=== PATIENT | female | born 1930 | race Caucasian/White ===

== ENCOUNTER 2016-10-05 14:07 | Inpatient (IN) | payer MEDICARE, OTHER ==
[~2016-10-05] VITALS: Ht 154.9 cm; Wt 51.7 kg
[~2016-10-05 14:07] MED LIST: ALBU0.086 NEB; ASCO500 PO; IRON325T PO; MELO7.5 PO; OMEP20TA PO; PRESCAP5 PO; SYMB80AE INH; ULTR50TA PO
[2016-10-05 14:14] VITALS: BP 151/66; PULSE 84; RESP 18; TEMP 98.8; O2SAT 91
--- NOTE | 2016-10-05 14:28 | PD ---
HPI Chief Complaint: Injury Time Seen by Provider: 14:21 Travel History International Travel<30 days: No Contact w/Intl Traveler<30days: No Traveled to known affect area: No History of Present Illness HPI Patient comes in via EMS. Reportedly came back from her primary care doctor's office complaining of worsening right hip pain and family was unable to patient the front seat of a car thusly and call EMS.. Per EMS patient is scheduled to have surgery in 2 days at this hospital and requests that she brought here for possible admission and surgery. Family did not report any new injury to EMS. Patient reports pain in her right hip that radiates distally. Is worse with movement. Denies any other complaints. Denies any chest pain, shortness of breath, abdominal pain, or known fevers. Patient does not know who is suppose to perform the surgery or who her primary care doctor is. Per EMS patient does have a history of dementia. PFSH Past Medical History Cancer: No Cardiovascular Problems: Yes Diabetes: No Endocrine: No Genitourinary: No Hepatitis: No Hiatal Hernia: No Immune Disorder: No Musculoskeletal: Yes (arthritis in hips) Neurologic: No Psychiatric: No Reproductive: No Respiratory: Yes (copd, uses 02 at night,RECENTLY SEEN FOR PNEUMONIA) Thyroid Disease: No Past Surgical History AICD: No Gynecologic Surgery: Yes (hysterectomy) Joint Replacement: No Oral Surgery: Yes (TONSILLECTOMY) Pacemaker: No Social History Alcohol Use: No Tobacco Use: No Substance Use: No (3 beers a day or more) Allergies-Medications (Allergen,Severity, Reaction): Coded Allergies: No Known Allergies (Unverified , 10/05/16) Reported Meds & Prescriptions Reported Meds & Active Scripts Active Reported Preservision Areds 2 (Multiple Vitamins W/ Minerals) Cap 1 Caplet PO BID Ultram (Tramadol HCl) 50 Mg Tab 50 Mg PO BID PRN Vitamin C 500 Mg Tab (Ascorbic Acid) 500 Mg Tab 1 Tab PO DAILY Omeprazole 20 mg (Omeprazole) 20 Mg Tab 1 Tab PO DAILY Mobic 7.5 Mg Tab (Meloxicam) 7.5 Mg Tab 7.5 Mg PO DAILY Iron Supplement (Ferrous Sulfate) 325 Mg Tab 1 Tab PO BID Symbicort (Budesonide/Formoterol Fumarate) 80 Mcg/4.5 Mcg Aer Unknown Dose INH BID * SHAKE WELL BEFORE USE * Proventil Ud 0.083% (2.5 Mg/3 Ml) (Albuterol Sulfate) 2.5 Mg/3 Ml Inha Unknown Dose NEB QID Review of Systems Except as stated in HPI: all other systems reviewed are Neg Physical Exam Narrative GENERAL: Well-developed, well nourished, in no acute distress, and non-ill appearing. SKIN: Warm and dry. HEAD: Atraumatic. Normocephalic. EYES: Pupils equal and round. EOMI. No scleral icterus. No injection or drainage. ENT: No nasal bleeding or discharge. Mucous membranes pink and moist. NECK: Trachea midline. Supple. No nuclear rigidity. CARDIOVASCULAR: Regular rate and rhythm. No murmur appreciated. RESPIRATORY: No accessory muscle use. No respiratory distress. GASTROINTESTINAL: Abdomen soft, non-tender, nondistended. Hepatic and splenic margins not palpable. No pulsatile mass. MUSCULOSKELETAL: No obvious deformities. No clubbing. No cyanosis. No edema. Decreased range of motion right lower extremity secondary to pain. Patient reports to palpation over right hip patient reports is worse when trying to passively move it thus limiting exam. Dorsal pulses 2+ intact bilaterally. Capillary refill less than 2 seconds. No pedal edema. NEUROLOGICAL: Awake and alert. No obvious cranial nerve deficits. Motor grossly within normal limits. Normal speech. PSYCHIATRIC: Appropriate mood and affect. Data Data Last Documented VS Vital Signs Date Time Temp Pulse Resp B/P Pulse Ox O2 Delivery O2 Flow Rate FiO2 10/05/16 17:34 96 Nasal Cannula 3 10/05/16 16:48 88 22 140/68 10/05/16 14:14 98.8 Orders Hip, Uni(Ap&Lat) W Ap Pelvis (10/05/16 ) Urinalysis - C+S If Indicated (10/05/16 14:20) Electrocardiogram (10/05/16 17:05) Basic Metabolic Panel (Bmp) (10/05/16 17:05) Complete Blood Count With Diff (10/05/16 17:05) Prothrombin Time / Inr (Pt) (10/05/16 17:05) Act Partial Throm Time (Ptt) (10/05/16 17:05) Chest, Single Ap (10/05/16 17:05) Ecg Monitoring (10/05/16 17:05) Iv Access Insert/Monitor (10/05/16 17:05) Oximetry (10/05/16 17:05) Oxygen Administration (10/05/16 17:05) Sodium Chloride 0.9% Flush (Ns Flush) (10/05/16 17:15) Consult Orthopedic (10/05/16 ) Admit Order (Ed Use Only) (10/05/16 17:35) Labs Laboratory Tests Test 10/05/16 10/05/16 14:30 17:00 Urine Color YELLOW Urine Turbidity CLEAR Urine pH 7.0 Urine Specific [place] 1.007 Urine Protein NEG mg/dL Urine Glucose (UA) NEG mg/dL Urine Ketones NEG mg/dL Urine Occult Blood NEG Urine Nitrite NEG Urine Bilirubin NEG Urine Urobilinogen LESS THAN 2.0 MG/DL Urine Leukocyte Esterase NEG Urine RBC 1 /hpf Urine WBC 1 /hpf Urine Squamous Epithelial 1 /hpf Cells Urine Mucus FEW /lpf Microscopic Urinalysis Comment CULT NOT INDICATED White Blood Count 7.5 TH/MM3 Red Blood Count 3.81 MIL/MM3 Hemoglobin 11.9 GM/DL Hematocrit 33.8 % Mean Corpuscular Volume 88.9 FL Mean Corpuscular Hemoglobin 31.3 PG Mean Corpuscular Hemoglobin 35.2 % Concent Red Cell Distribution Width 13.6 % Platelet Count 300 TH/MM3 Mean Platelet Volume 7.7 FL Neutrophils (%) (Auto) 76.7 % Lymphocytes (%) (Auto) 13.8 % Monocytes (%) (Auto) 8.6 % Eosinophils (%) (Auto) 0.4 % Basophils (%) (Auto) 0.5 % Neutrophils # (Auto) 5.8 TH/MM3 Lymphocytes # (Auto) 1.0 TH/MM3 Monocytes # (Auto) 0.6 TH/MM3 Eosinophils # (Auto) 0.0 TH/MM3 Basophils # (Auto) 0.0 TH/MM3 CBC Comment DIFF FINAL Differential Comment Prothrombin Time 10.8 SEC Prothromb Time International 1.0 RATIO Ratio Activated Partial 23.9 SEC Thromboplast Time MDM Medical Decision Making Medical Screen Exam Complete: Yes Emergency Medical Condition: Yes Differential Diagnosis Fracture, strain, contusion, other Narrative Course 1430 spoke with patient's next of kin Pop Toro who states patient was complaining of worsening pain last night was given her pain medication last dose around 6:00 this morning is supposed to have revision of her right hip by Dr. Abraham 17 of this month. Reports they tried calling Dr. Abraham this morning but was not able get in contact with him after returning back from her doctor's appointment this morning called EMS to have her brought to the hospital. Uncertain if the patient has fallen and reinjured her hip or not. Denies any known fevers. Reports patient's not been ambulatory since previous surgery on his hip. States patient sees nurse practitioner Donald Calabrese, but is uncertain who the physician is. Patient seen exam. X-rays were obtained reviewed. Discussed patient with Dr. Dowell, who is in agreement with plan of care and disposition. Discussed off eyes and plan of care with patient, who was agreeable for admission. All questions were answered Physician Communication Physician Communication [address] Abraham, who reviewed patient's x-rays, recommends having patient placed nothing by mouth after midnight for surgery tomorrow and admitting to medicine. [address] Mendez compensation expert resident, who was agreeable to admit the patient for Dr. López Diagnosis Primary Impression: Closed right hip fracture Qualified Code: S72.001A - Closed right hip fracture, initial encounter Admitting Information Admitting Physician Requests: Admit Condition: Stable Yayo Oneill Oct 05, 2016 14:28
[2016-10-05 14:51] LABS: BLOOD, URINE NEG (NEG); COMMENT (UR) CULT NOT INDICATED; CULTURE IF INDICATED CULT NOT INDICATED; GLUCOSE,URINE NEG (NEG); KETONE, URINE NEG (NEG); MUCUS URINE FEW /lpf (OCC); NITRITE,URINE NEG (NEG); SQUAMOUS EPITHELIAL CELL URINE 1 /hpf (0-5); URINE COLOR YELLOW (YELLW/STRAW)
--- NOTE | 2016-10-05 15:54 | RADRPT ---
EXAM DATE/TIME: 10/05/2016 14:44 [facility] COMPARISON: No previous studies available for comparison. INDICATIONS : Right hip pain after falling last night. MEDICAL HISTORY : Arthritis. SURGICAL HISTORY : Total hip replacement, right. ENCOUNTER: Initial ACUITY: 2 days PAIN SCORE: 9/10 LOCATION: Right hip. FINDINGS: Hardware is noted within the right proximal femur status post old ORIF. There is a new fracture in t he region of the right femoral neck with displacement of the hardware and femur superiorly while the head remains within the acetabulum. CONCLUSION: 1. Acute fracture of the right femoral neck with displacement of the hardware and subtrochanteric fe mur superiorly. Donald Bertrand MD on October 05, 2016 at 15:47 Board Certified Radiologist. This report was verified electronically.
[2016-10-05 16:48] VITALS: BP 140/68; PULSE 88; RESP 22; O2SAT 94
[2016-10-05] MEDS ORDERED: SODIUM CHLORIDE 0.9% FLUSH 5 ML FLUSH IVF PRN (17:15)
[2016-10-05 17:25] LABS: AUTOMATED NEUTROPHIL # 5.8 TH/MM3 (1.8-7.7); BASOPHIL % 0.5 % (0.0-2.0); EOSINOPHIL % 0.4 % (0.0-4.0); HEMATOCRIT 33.8 % (35.0-46.0); HEMO FLAGS DIFF FINAL; LYMPH % 13.8 % (9.0-44.0); MEAN CELL VOLUME 88.9 FL (80.0-100.0); MEAN CORPUSCULAR HEMOGLOBIN 31.3 PG (27.0-34.0); MEAN CORPUSCULAR HGB CONC 35.2 % (32.0-36.0); MONO % 8.6 % (0.0-8.0); NEUT % 76.7 % (16.0-70.0); PLATELET COUNT 300 TH/MM3 (150-450); RED BLOOD COUNT 3.81 MIL/MM3 (4.00-5.30); RED CELL DISTRIBUTION WIDTH 13.6 % (11.6-17.2); WHITE BLOOD COUNT 7.5 TH/MM3 (4.0-11.0)
[2016-10-05 17:33] LABS: APTT (PATIENT) 23.9 SEC (24.3-30.1); PROTHROMBIN TIME - PATIENT 10.8 SEC (9.8-11.6)
[2016-10-05 17:34] VITALS: O2SAT 96
--- NOTE | 2016-10-05 17:47 | RADRPT ---
EXAM DATE/TIME: 10/05/2016 15:25 [facility] COMPARISON: No previous studies available for comparison. INDICATIONS : Evaluate for pneumonia,pneumothorax, or any communicable diseases. MEDICAL HISTORY : Arthritis. SURGICAL HISTORY : Total hip replacement, right. ENCOUNTER: Initial ACUITY: 1 day PAIN SCORE: 0/10 LOCATION: Bilateral chest FINDINGS: A single AP portable erect view of the chest was obtained and demonstrates volume loss in the right h emithorax with mediastinal shift to the right. There is blunting of the right costophrenic angle with patchy opacity at the right lung base. There is mild patchy opacity along the lateral lower right up per lobe and minor fissure. The heart size is at the upper limits of normal. There are atheroscleroti c changes in the aorta. The left lung is clear. CONCLUSION: 1. Mild loss in the right hemithorax with mediastinal shift. 2. Abnormal opacity in the right lung base with blunting of the costophrenic angle and mild hazy opac ity in the right upper lobe. The chronicity of findings is not known and these could represent scarri ng. Atelectasis and partial collapse are also consideration. Pneumonia could have this appearance as well. 3. There are symmetric any old outside studies would be helpful. Sriram Culver MD on October 05, 2016 at 17:44 Board Certified Radiologist. This report was verified electronically.
[2016-10-05 17:55] LABS: BICARBONATE 29.9 MEQ/L (21.0-32.0); POTASSIUM 3.5 MEQ/L (3.5-5.1)
[2016-10-05 18:07] VITALS: BP 162/70; PULSE 66; RESP 18; O2SAT 95
[2016-10-05] MEDS ORDERED: MULT-120 PO (18:16)
[2016-10-05] MEDS ORDERED: ZOFR4TAB PO (18:16)
[2016-10-05] MEDS ORDERED: ZANT150T2 PO (18:16)
[2016-10-05] MEDS ORDERED: SYMB80AE INH (18:16)
[2016-10-05] MEDS ORDERED: LORA-392 PO (18:16)
[2016-10-05] MEDS ORDERED: ALBUAER3 INH (18:16)
[2016-10-05] MEDS ORDERED: FERR1TAB36 PO (18:16)
[2016-10-05] MEDS ORDERED: MELO7.5T4 PO (18:16)
[2016-10-05] MEDS ORDERED: CHOL100025 CHEW (18:16)
[2016-10-05] MEDS ORDERED: OMEP20TA PO (18:16)
[2016-10-05] MEDS ORDERED: LACT10SO27 (18:16)
[2016-10-05] MEDS ORDERED: METO50TA PO (18:16)
[2016-10-05] MEDS ORDERED: TRAZ50TA12 PO (18:16)
[2016-10-05] MEDS ORDERED: NORC5TAB PO (18:16)
[2016-10-05] MEDS ORDERED: VITA500C9 CHEW (18:16)
--- NOTE | 2016-10-05 18:41 | HHI.HP ---
HPI Service Family Medicine Primary Care Physician Unknown Admission Diagnosis right hip fracture Diagnoses: International Travel<30 Days: No Contact w/Intl Traveler<30days: No Known Affected Area: No History of Present Illness According to patient with h/o dementia, about a week ago she went to sit down and there was no chair, so she fell. Since that time, she has had pain in her right lower leg, right thigh, and right groin. She tried OTC pain medications, but they don't help much. She went to see her PCP today. History is otherwise limited by patient's dementia. From ED provider note: Patient comes in via EMS. Reportedly came back from her primary care doctor's office complaining of worsening right hip pain and family was unable to get patient in the front seat of a car, so they called EMS. Per EMS, patient is scheduled to have surgery in 2 days at this hospital and requests that she be brought here for possible admission and surgery. Family did not report any new injury to EMS. Patient reports pain in her right hip that radiates distally. Is worse with movement. Denies any other complaints. Denies any chest pain, shortness of breath, abdominal pain, or known fevers. Patient does not know who is suppose to perform the surgery or who her primary care doctor is. Per EMS, patient does have a history of dementia. (Sriram Ji MD R1) Review of Systems ROS Limitations: Altered Mental Status (patient with history of dementia), Poor Historian (patient with history of dementia) Constitutional: COMPLAINS OF: Fever (feels warm), DENIES: Fatigue, Chills Endocrine: DENIES: Polydipsia Eyes: DENIES: Blurred vision, Diplopia, Vision loss, Double Vision Ears, nose, mouth, throat: COMPLAINS OF: Running Nose, DENIES: Throat pain Respiratory: COMPLAINS OF: Cough, DENIES: Shortness of breath Cardiovascular: DENIES: Chest pain Gastrointestinal: DENIES: Abdominal pain Genitourinary: DENIES: Dysuria Musculoskeletal: COMPLAINS OF: Joint pain, Muscle aches Integumentary: DENIES: Rash Hematologic/lymphatic: COMPLAINS OF: Bruising Neurologic: DENIES: Headache (Sriram Ji MD R1) Past Family Social History Past Medical History Patient denies any medical problems. History taking limited by patient's dementia. From EMR, patient has asthma, anxiety, depression, reflux, arthritis, encephalopathy, hypertension versus tachyarrhythmia Past Surgical History Per patient, Hysterectomy Per EMR, Right femoral intramedullary man Reported Medications Reported Meds & Active Scripts Active Reported Proair Hfa 8.5 GM Inh (Albuterol Sulfate) Unknown Strength Aer Unknown Dose INH QID PRN 108 mcg/actuation Zofran (Ondansetron HCl) 4 Mg Tab 4 Mg PO Q8HR PRN Dutton (Hydrocodone-Acetaminophen) 5-325 mg Tab 1 Tab PO Q6H PRN Trazodone (Trazodone HCl) 50 Mg Tab 50 Mg PO HS Zantac (Ranitidine HCl) 150 Mg Tab 150 Mg PO HS Symbicort Inh (Budesonide/Formoterol Fumarate) Unknown Strength Aero Unknown Dose INH Q12HR Metoprolol Tartrate 50 Mg Tab 50 Mg PO BID Lactulose Liq (Lactulose (Encephalopathy) Liq) 19 Gm/15 Ml Soln Vitamin D3 (Cholecalciferol) 1,000 Unit Chew 1,000 Units CHEW DAILY Vitamin C (Ascorbic Acid) 500 Mg Chew 500 Mg CHEW DAILY Omeprazole 20 Mg Tab 20 Mg PO DAILY Multivitamin Women (Multiple Vitamins W/ Minerals) 1 Tab Tab 1 Tab PO DAILY Meloxicam 7.5 Mg Tab 7.5 Mg PO DAILY Iron (Ferrous Sulfate) 325 Mg Tab 325 Mg PO DAILY Take Ativan (Lorazepam) 0.5 Mg Tab 0.5 Mg PO HS PRN (Sriram Ji MD R1) Allergies: Coded Allergies: No Known Allergies (Unverified , 10/05/16) Active Ordered Medications Current Medications Medications (Trade) Dose Ordered Sig/Edda Route Start Time Stop Time Status Last Admin (Dutton 5-325 Mg) 1 tab Q6H PRN PO 10/05/16 18:45 (Ativan) 0.5 mg HS PRN PO 10/05/16 18:45 (Mobic) 7.5 mg DAILY PO 10/06/16 09:00 (Lopressor) 50 mg BID PO 10/05/16 21:00 10/05/16 22:25 (Protonix) 20 mg DAILY PO 10/06/16 09:00 (Pepcid) 20 mg BID PO 10/05/16 21:00 10/05/16 22:25 (Desyrel) 50 mg HS PO 10/05/16 21:00 10/05/16 22:25 (Zofran Odt) 4 mg Q8H PRN PO 10/05/16 19:15 Morphine Sulfate 4 mg 4 mg Q3H PRN IV PUSH 10/05/16 18:45 10/05/16 19:17 (NS 1000 ml Inj) 1,000 ml @ 85 mls/hr [id number] IV 10/05/16 19:03 10/05/16 19:19 (NS Flush) 2 ml UNSCH PRN FLUSH 10/05/16 19:15 (NS Flush) 2 ml BID FLUSH 10/05/16 21:00 10/05/16 22:27 (Tylenol) 650 mg Q4H PRN PO 10/05/16 19:15 (Zofran Inj) 4 mg Q6H PRN IVP 10/05/16 19:15 Naloxone HCl 0.4 mg 0.4 mg UNSCH PRN IV 10/05/16 19:15 Ceftriaxone Sodium 1000 mg/ Sodium Chloride 100 ml @ 200 mls/hr Q24H IV 10/05/16 21:00 10/05/16 22:26 (Zithromax Inj/ NS 250 ml Inj) 250 ml @ 250 mls/hr ONCE ONCE IV 10/06/16 21:00 10/06/16 21:59 (Proair Hfa Inh) 2 puff Q4H PRN INH 10/05/16 20:45 Family History Patient denies any significant family history. Unable to locate in the EMR. Social History Daughter and granddaughter come and help her, but she reports living alone. She denies any tobacco, alcohol, drug use. (Sriram Ji MD R1) Physical Exam Vital Signs Vital Signs Date Time Temp Pulse Resp B/P Pulse Ox O2 Delivery O2 Flow Rate FiO2 10/05/16 18:09 16 98 Nasal Cannula 3 10/05/16 18:07 66 18 162/70 95 Nasal Cannula 3 10/05/16 17:34 96 Nasal Cannula 3 10/05/16 17:34 96 Nasal Cannula 3 10/05/16 16:48 88 22 140/68 94 Nasal Cannula 10/05/16 14:14 98.8 84 18 151/66 91 Physical Exam GENERAL: This is a frail elderly patient, in no apparent distress. SKIN: Scattered ecchymoses on legs BL. Cool and dry. HEAD: Atraumatic. Normocephalic. EYES: Pupils equal round and reactive. Extraocular motions intact. No scleral icterus. No injection or drainage. ENT: Nose without bleeding, purulent drainage. Throat without erythema, tonsillar hypertrophy or exudate. Uvula midline. Airway patent. NECK: Trachea midline. No JVD or lymphadenopathy. Supple, nontender, no meningeal signs. CARDIOVASCULAR: Regular rate and rhythm without murmurs, gallops, or rubs. RESPIRATORY: Clear to auscultation but with poor respiratory effort. Breath sounds equal bilaterally. No wheezes, rales, or rhonchi. GASTROINTESTINAL: Abdomen soft, non-tender, nondistended. No guarding. MUSCULOSKELETAL: bandage over RLE c/d/i. Hip movement limited by pain. 2+ dorsalis pedis and post tib pulses BL. Pt with motor and sensation intact distal to injured right hip. Extremities without clubbing, cyanosis, or edema. No joint tenderness, effusion, or edema noted. No calf tenderness on left. + tenderness of right calf. NEUROLOGICAL: Awake and alert. Cranial nerves II through XII grossly intact. Motor and sensory grossly within normal limits. Normal speech. Laboratory Laboratory Tests Test 10/05/16 10/05/16 14:30 17:00 Urine Color YELLOW Urine Turbidity CLEAR Urine pH 7.0 Urine Specific [place] 1.007 Urine Protein NEG Urine Glucose (UA) NEG Urine Ketones NEG Urine Occult Blood NEG Urine Nitrite NEG Urine Bilirubin NEG Urine Urobilinogen LESS THAN 2.0 Urine Leukocyte Esterase NEG Urine RBC 1 Urine WBC 1 Urine Squamous Epithelial 1 Cells Urine Mucus FEW Microscopic Urinalysis Comment CULT NOT INDICATED White Blood Count 7.5 Red Blood Count 3.81 Hemoglobin 11.9 Hematocrit 33.8 Mean Corpuscular Volume 88.9 Mean Corpuscular Hemoglobin 31.3 Mean Corpuscular Hemoglobin 35.2 Concent Red Cell Distribution Width 13.6 Platelet Count 300 Mean Platelet Volume 7.7 Neutrophils (%) (Auto) 76.7 Lymphocytes (%) (Auto) 13.8 Monocytes (%) (Auto) 8.6 Eosinophils (%) (Auto) 0.4 Basophils (%) (Auto) 0.5 Neutrophils # (Auto) 5.8 Lymphocytes # (Auto) 1.0 Monocytes # (Auto) 0.6 Eosinophils # (Auto) 0.0 Basophils # (Auto) 0.0 CBC Comment DIFF FINAL Differential Comment Prothrombin Time 10.8 Prothromb Time International 1.0 Ratio Activated Partial 23.9 Thromboplast Time Sodium Level 136 Potassium Level 3.5 Chloride Level 98 Carbon Dioxide Level 29.9 Anion Gap 8 Blood Urea Nitrogen 11 Creatinine 0.73 Estimat Glomerular Filtration 75 Rate Random Glucose 89 Calcium Level 9.0 (Sriram Ji MD R1) Result Diagram: 10/05/16 1700 10/05/16 1700 Imaging Last Impressions Chest X-Ray 10/05/16 1705 Signed Impressions: Service Date/Time: September 15:25 - CONCLUSION: 1. Mild loss in the right hemithorax with mediastinal shift. 2. Abnormal opacity in the right lung base with blunting of the costophrenic angle and mild hazy opacity in the right upper lobe. The chronicity of findings is not known and these could represent scarring. Atelectasis and partial collapse are also consideration. Pneumonia could have this appearance as well. 3. There are symmetric any old outside studies would be helpful. Sriram Culver MD Hip and Pelvis X-Ray 10/05/16 0000 Signed Impressions: Service Date/Time: September 14:44 - CONCLUSION: 1. Acute fracture of the right femoral neck with displacement of the hardware and subtrochanteric femur superiorly. Donald Bertrand MD Course In the emergency department, patient had UA, right hip x-ray, oxygen administration, chest x-ray, a PTT, PT/INR, CBC, BMP, EKG, orthopedic consult, admission order. (Sriram Ji MD R1) Assessment and Plan Assessment and Plan Patient is an 86-year-old with a history of dementia who presents with right femoral neck fracture with displacement of the hardware and possible pneumonia on chest x-ray. Code Status Full code Discussed Condition With Patient seen and discussed with Dr. Trinity Mendez (Sriram Ji MD R1) Attending Attestation THIS CASE WAS DISCUSSED WITH THE RESIDENT PHYSICIANS. I HAVE REVIEWED THE RECORD AND AGREE WITH THE ABOVE NOTE AND PLAN OF CARE WAS DISCUSSED. I HAVE AUTHORIZED THE ORDER FOR ADMISSION TO AN IN-PATIENT STATUS. (Mike López MD) Problem List: (1) Closed right hip fracture Status: Acute Plan: Patient is an 86-year-old with a history of dementia who presents with right femoral neck fracture with displacement of the hardware. Consult orthopedic surgery Admit to inpatient Regular basic diet and nothing by mouth after midnight Maintenance fluids of normal saline IV at 85 mL per hour CBC every morning Pain control as below * Dutton 5-to 25 mg 1 tab by mouth every 6 hours when necessary for pain * Tylenol 650 mg by mouth every 4 hours when necessary for pain * Morphine 4 mg IV push every 3 hours when necessary for breakthrough pain Monitor intake and output Monitor vital signs Administer oxygen as needed (2) Pneumonia Status: Acute Plan: Patient with chest x-ray concerning for pneumonia. Azithromycin 500 mg by mouth tonight; azithromycin IV when patient is nothing by mouth Ceftriaxone 1 g IV every 24 hours IV fluids as above (3) Nutrition, metabolism, and development symptoms Status: Acute Plan: Fluids: Normal saline IV at 85 mL per hour Electrolytes: Replete as necessary Nutrition: Regular basic diet, nothing by mouth from midnight GI prophylaxis: Continue patient's home medications of Pepcid 20 mg by mouth twice a day, Protonix 20 mg by mouth daily Chronic medical problems: Continue albuterol inhaler when necessary for shortness of breath Continue home Dutton when necessary for pain Continue home lorazepam when necessary for anxiety and/or agitation Continue home meloxicam by mouth daily for arthritis pain Continue home metoprolol tartrate 50 mg by mouth twice a day for blood pressure and heart rate control Continue home Zofran formally gram by mouth every 8 hours when necessary for nausea or vomiting Continue home trazodone 50 mg by mouth daily at bedtime for depression (4) Contraindication to anticoagulation therapy Status: Acute Plan: Patient with right hip fracture, scattered ecchymoses. Chemical anticoagulation contraindicated. Patient with tender right calf. Mechanical DVT prophylaxis contraindicated. (Sriram Ji MD R1) Physician Certification 2 Midnight Certification Type: Admission for Inpatient Services Order for Inpatient Services The services are ordered in accordance with Medicare regulations or non- Medicare payer requirements, as applicable. In the case of services not specified as inpatient-only, they are appropriately provided as inpatient services in accordance with the 2-midnight benchmark. Estimated LOS (days): 2 2 days is the estimated time the patient will need to remain in the hospital, assuming treatment plan goals are met and no additional complications. Post-Hospital Plan: Not yet determined (Sriram Ji MD R1) Problem Qualifiers (1) Closed right hip fracture: Qualified Code: S72.001A - Closed right hip fracture, initial encounter Sriram Ji MD R1 Oct 05, 2016 18:41 Mike López MD Oct 06, 2016 11:52
[2016-10-05] MEDS ORDERED: LORazepam 0.5 MG TAB PO PRN (18:45)
[2016-10-05] MEDS ORDERED: ACETAMINOPHEN/HYDROcodone 325 MG/5 MG TAB PO PRN (18:45)
[2016-10-05] MEDS ORDERED: NALOXONE HCL 0.4 MG/ML AMP IV PRN (19:15)
[2016-10-05] MEDS ORDERED: ONDANSETRON HCL 4 MG/2 ML VIAL IVP PRN (19:15)
[2016-10-05] MEDS ORDERED: SODIUM CHLORIDE 0.9% FLUSH 5 ML FLUSH FLUSH PRN (19:15)
[2016-10-05] MEDS ORDERED: ONDANSETRON ODT 4 MG TAB PO PRN (19:15)
[2016-10-05] MEDS ORDERED: ACETAMINOPHEN 325 MG TAB PO PRN (19:15)
[2016-10-05] MEDS: MORPHINE SULFATE 4 MG/ML INJ IV PUSH PRN (19:17)
[2016-10-05 19:18] VITALS: BP 173/74; PULSE 69; RESP 16; O2SAT 95
[2016-10-05] MEDS: SODIUM CHLOR 0.9% 1000 ML INJ 1,000 ML IV SCH (19:19)
[2016-10-05] MEDS ORDERED: AZITHROMYCIN 250 MG TAB PO ONE (20:15)
[2016-10-05 20:20] VITALS: BP 144/65; PULSE 84; RESP 16; O2SAT 99
[2016-10-05] MEDS ORDERED: ALBUTEROL SULFATE 90 MCG/ACT HFA 8 GM INHALER INH PRN (20:45)
[2016-10-05] MEDS ORDERED: cefTRIAXone INJ 1,000 MG in SODIUM CHLORIDE 0.9% INJ 100 ML IV SCH (21:00)
[2016-10-05] MEDS: traZODone HCL 50 MG TAB PO SCH (22:25)
[2016-10-05] MEDS: METOPROLOL TARTRATE 50 MG TAB PO SCH (22:25)
[2016-10-05] MEDS: FAMOTIDINE 20 MG TAB PO SCH (22:25)
[2016-10-05] MEDS: SODIUM CHLORIDE 0.9% FLUSH 5 ML FLUSH FLUSH SCH (22:27)
[2016-10-06] VITALS (11 sets, daily range): BP systolic 88–152; BP diastolic 52–68; PULSE 55–79; RESP 16–20; TEMP 95.2–98.3; O2SAT 99–100
[2016-10-06 04:20] LABS: AUTOMATED NEUTROPHIL # 2.8 TH/MM3 (1.8-7.7); BASOPHIL % 0.6 % (0.0-2.0); EOSINOPHIL # 0.1 TH/MM3 (0-0.4); EOSINOPHIL % 1.9 % (0.0-4.0); HEMATOCRIT 26.4 % (35.0-46.0); HEMO FLAGS DIFF FINAL; LYMPH % 22.6 % (9.0-44.0); MEAN CELL VOLUME 89.5 FL (80.0-100.0); MEAN CORPUSCULAR HEMOGLOBIN 31.3 PG (27.0-34.0); MONO % 10.6 % (0.0-8.0); NEUT % 64.3 % (16.0-70.0); PLATELET COUNT 221 TH/MM3 (150-450); RED BLOOD COUNT 2.95 MIL/MM3 (4.00-5.30); RED CELL DISTRIBUTION WIDTH 13.3 % (11.6-17.2); WHITE BLOOD COUNT 4.4 TH/MM3 (4.0-11.0)
[2016-10-06 05:06] LABS: BICARBONATE 29.1 MEQ/L (21.0-32.0); POTASSIUM 3.7 MEQ/L (3.5-5.1)
[2016-10-06] MEDS: SODIUM CHLORIDE 0.9% FLUSH 5 ML FLUSH FLUSH SCH (08:30)
[2016-10-06] MEDS: SODIUM CHLOR 0.9% 1000 ML INJ 1,000 ML IV SCH ×2 (08:30→17:16)
[2016-10-06] MEDS: MORPHINE SULFATE 4 MG/ML INJ IV PUSH PRN (08:31)
[2016-10-06] MEDS: FAMOTIDINE 20 MG TAB PO SCH ×2 (08:31→20:08)
[2016-10-06] MEDS: PANTOPRAZOLE SOD 20 MG DELAYED RELEASE TAB PO SCH (08:31)
[2016-10-06] MEDS: METOPROLOL TARTRATE 50 MG TAB PO SCH ×2 (08:31→20:08)
[2016-10-06] MEDS ORDERED: MELOXICAM 7.5 MG TAB PO SCH (09:00)
[2016-10-06] MEDS ORDERED: GENTAMICIN SULFATE 80 MG/2 ML VIAL ONE (09:00)
[2016-10-06] MEDS ORDERED: fentaNYL CITRATE 250 MCG/5 ML AMP ONE (09:05)
[2016-10-06] MEDS ORDERED: HYDROmorphone HCL PF 2 MG/ML VIAL ONE (09:05)
[2016-10-06] MEDS ORDERED: MIDAZOLAM HCL 2 MG/2 ML VIAL ONE (09:05)
[2016-10-06] MEDS ORDERED: ACETAMINOPHEN 1000 MG/100 ML VIAL IV ONE (09:05)
[2016-10-06] MEDS ORDERED: FAMOTIDINE 20 MG/2 ML VIAL ONE (09:05)
[2016-10-06] MEDS ORDERED: VANCOMYCIN HCL 1000 MG VIAL ONE ×3 (09:15→10:09)
[2016-10-06] MEDS ORDERED: ceFAZolin INJ 1,000 MG VIAL ONE (09:15)
[2016-10-06] MEDS ORDERED: HYDR-3288 PO (09:34)
[2016-10-06] MEDS ORDERED: WALKER/ADULT/FO1 MIS (09:34)
[2016-10-06] MEDS ORDERED: XARE10TA PO (09:34)
[2016-10-06] MEDS ORDERED: SODIUM CHLORIDE 0.9% IV ONE (10:15)
[2016-10-06] MEDS ORDERED: TRANEXAMIC ACID IV ONE (10:15)
[2016-10-06] MEDS ORDERED: SODIUM CHLORIDE 0.9% FLUSH 5 ML FLUSH IVF PRN (11:30)
[2016-10-06] MEDS ORDERED: ACETAMINOPHEN/HYDROcodone 325 MG/5 MG TAB PO PRN (11:30)
[2016-10-06] MEDS ORDERED: ERGOCALCIFEROL (VIT D2) 50,000 UNIT CAP PO ONE (11:30)
[2016-10-06] MEDS ORDERED: Post-op Orders (for Pharmacy) MISC XX ONE (11:30)
--- NOTE | 2016-10-06 11:35 | PD.OP ---
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 Surgeon: Raymon Napier Supervisor Sample Preparation(s): DAVID Acuña PA-C The surgical procedure was assisted by my physician hospital nursing assistant. My P.A. presence was necessary throughout this case for the manipulation and positioning of the surgical extremity. My P.A. was assisting me throughout the duration of this procedure. The skill set of a physician hospital nursing assistant was medically necessary to complete this procedure. During the surgical case the surgical elastic knitter was working at the back table and the physician hospital nursing assistant was directly assisting me. Operation and Findings: PLAN OF ACTIVITY 50% weightbearing right leg with posterior hip precautions IMPLANTS USED DePuy cemented [place] size [6] stem with size [45] bipolar head and [+5] neck. DRAIN: 7 mm [place] drain DETAILS OF PROCEDURE This patient was seen and evaluated preoperatively in the emergency department. She is having significant right hip pain from right femur intertrochanteric fracture. The intertrochanteric nail was cut to the femoral head. Patient is confused. Multiple attempts were made to contact family about success. I discussed this with the emergency room physician. We agree that it was medically emergent to proceed with surgery to repair her hip. She was brought into the operating room and placed on the OR table. The patient was given anesthesia. The patient received IV antibiotics. The patient was then placed in lateral decubitus position. The hip and leg were prepped with alcohol, followed by Hibiclens and draped in a usual sterile fashion. Clean air was used for this procedure. Time out procedure was performed. The procedure began with a 6 inch incision over the posterolateral hip. The subcutaneous tissue was dissected with the Bovie. The iliotibial band were split in line with fibers. The Charnley retractor was placed. The piriformis and external rotators were released from the femur and tagged with a #1 Vicryl suture. The capsule is now incised and tagged with #1 Vicryl. Next attention was turned to removal of the hardware. The proximal end of the nail was identified. A screwdriver was used to backup the set screw. Next the lag screw was identified. The lag screw was now removed using the appropriate screw removal ice cream truck driver. The insertion handle was now screwed onto the top of the nail. An additional incision was made for the distal screw. The distal screw was identified. A screwdriver was used to remove the distal screw. The nail was now removed the proximal to the femur. At this point the femoral head was removed. There was clear nonunion of the proximal femur fracture. The lag screw was protruding through the subchondral bone. The femoral head was sized and found to be size 45. At this point attention was turned to preparation of the proximal femur. A box osteotome was used to remove the lateral cortex of the femoral neck. The T- handle reamer was used to open the femoral canal. The canal was now reamed. Next , the canal was broached up to appropiate size. A lateralizing reamer was used to help lateralize the prosthesis. At this point a trial head and neck were placed. The hip was reduced. The patient was found to have excellent stability with good range of motion. Trial components were removed. Soft tissue and bone were thoroughly irrigated. The summit stem was now opened. Cement was mixed with vancomycin powder. Cement was pressurized into the femoral canal. The stem was now placed into the proximal femur. Care was taken to keep appropriate anteversion. excess cement was removed. After cement was set, the head and neck were now impacted onto the stem. The hip was again reduced. There was some cement that had protruded through the screw holes. This was removed using an osteotome. The hip was found to have good range of motion and good stability. Leg lengths were clinically equal. The wound was thoroughly irrigated. The capsule, piriformis and iliotibial band were closed with #1 Vicryl. Subcutaneous tissue was closed with 3-0 Vicryl. The skin was closed with yoni. A sterile dressing was applied with Primapore. The patient was placed into a knee immobilizer. The patient was awakened and transferred to the recovery room in stable condition. Needle and sponge counts were correct. Raymon Napier MD Oct 06, 2016 11:35
--- NOTE | 2016-10-06 11:51 | HHI.FPPN ---
Subjective Remarks No acute events overnight. Patient complains only of pain in her right hip and her left heel. She did have a drop in her hemoglobin from 11.9 to 9.2. She is scheduled to go to the OR today for repair of her right hip fracture. In summary this is an 86-year-old female with history of dementia who presents for treatment of a right hip fracture. She is unable to tell the history, however per chart review she fell down while trying to sit in a chair approximately 1 week ago with immediate pain in her right hip and thigh. She was trying to go see her PCP, however was unable to get out of the car due to pain and EMS was called to transport her to the hospital. Past Medical History Patient denies any medical problems. History taking limited by patient's dementia. From EMR, patient has asthma, anxiety, depression, reflux, arthritis, encephalopathy, hypertension versus tachyarrhythmia Past Surgical History Per patient, Hysterectomy Per EMR, Right femoral intramedullary man Family History Patient denies any significant family history. Unable to locate in the EMR. Social History Daughter and granddaughter come and help her, but she reports living alone. She denies any tobacco, alcohol, drug use. Objective Vitals Vital Signs Date Time Temp Pulse Resp B/P Pulse Ox O2 Delivery O2 Flow Rate FiO2 10/06/16 09:00 58 20 152/68 99 Nasal Cannula 2 10/06/16 08:55 20 10/06/16 07:00 98.3 66 16 146/67 99 Nasal Cannula 2 10/06/16 03:59 66 16 123/60 100 Nasal Cannula 2 10/05/16 20:20 84 16 144/65 99 Nasal Cannula 3 10/05/16 19:53 Nasal Cannula 3.00 10/05/16 19:18 69 16 173/74 95 Nasal Cannula 3 10/05/16 18:09 16 98 Nasal Cannula 3 10/05/16 18:07 66 18 162/70 95 Nasal Cannula 3 10/05/16 17:34 96 Nasal Cannula 3 10/05/16 17:34 96 Nasal Cannula 3 10/05/16 16:48 88 22 140/68 94 Nasal Cannula 10/05/16 14:14 98.8 84 18 151/66 91 I/O 10/05/16 10/05/16 10/05/16 10/06/16 10/06/16 10/06/16 07:00 15:00 23:00 07:00 15:00 23:00 Output Total 400 ml 200 ml Balance -400 ml -200 ml Output Urine Total 400 ml 200 ml # Voids 1 1 Result Diagram: 10/06/16 0350 10/06/16 0350 Imaging Last 48 hours Impressions Chest X-Ray 10/05/16 1705 Signed Impressions: Service Date/Time: September 15:25 - CONCLUSION: 1. Mild loss in the right hemithorax with mediastinal shift. 2. Abnormal opacity in the right lung base with blunting of the costophrenic angle and mild hazy opacity in the right upper lobe. The chronicity of findings is not known and these could represent scarring. Atelectasis and partial collapse are also consideration. Pneumonia could have this appearance as well. 3. There are symmetric any old outside studies would be helpful. Sriram Culver MD Hip and Pelvis X-Ray 10/05/16 0000 Signed Impressions: Service Date/Time: September 14:44 - CONCLUSION: 1. Acute fracture of the right femoral neck with displacement of the hardware and subtrochanteric femur superiorly. Donald Bertrand MD Objective Remarks GENERAL: This is a frail elderly patient, in no apparent distress. Pleasantly confused SKIN: Scattered ecchymoses on legs BL. Cool and dry. HEAD: Atraumatic. Normocephalic. No obvious ecchymosis CARDIOVASCULAR: Regular rate and rhythm without murmurs, gallops, or rubs. RESPIRATORY: Clear to auscultation anteriorly but with poor respiratory effort. Breath sounds equal bilaterally. No wheezes, rales, or rhonchi. GASTROINTESTINAL: Abdomen soft, non-tender, nondistended. No guarding. MUSCULOSKELETAL: bandage over RLE c/d/i. Right lower extremity shortened and externally rotated. Multiple ecchymosis over bilateral lower legs. Sensation intact with 2+ dorsalis pedis pulse in the right foot NEUROLOGICAL: Awake and alert. A/P Assessment and Plan Patient is an 86-year-old with a history of dementia who presents with right femoral neck fracture with displacement of the hardware and possible pneumonia on chest x-ray. Problem List: (1) Closed right hip fracture Status: Acute Plan: Scheduled to go to the OR today with orthopedics for surgical repair of the right proximal femoral fracture Pain control as below * Surprise 5-to 25 mg 1 tab by mouth every 6 hours when necessary for pain * Tylenol 650 mg by mouth every 4 hours when necessary for pain * Morphine 4 mg IV push every 3 hours when necessary for breakthrough pain - Currently nothing by mouth with advancing diet as tolerated postoperatively - Maintenance fluids of normal saline IV at 85 mL per hour - CBC to monitor for acute blood loss - Monitor on telemetry - Supplemental oxygen as needed (2) Pneumonia Status: Acute Plan: Patient with chest x-ray concerning for pneumonia. Azithromycin 500 mg by mouth daily 5 days - Rocephin 1 g IV every 24 Blood cultures pending Supplemental oxygen as needed Breathing treatments with duo nebs every 6 hours (3) Nutrition, metabolism, and development symptoms Status: Acute Plan: Fluids: Normal saline IV at 85 mL per hour Electrolytes: Replete as necessary Nutrition: Regular basic diet, nothing by mouth from midnight GI prophylaxis: Continue patient's home medications of Pepcid 20 mg by mouth twice a day, Protonix 20 mg by mouth daily (4) Contraindication to anticoagulation therapy Status: Acute Plan: Patient with right hip fracture, scattered ecchymoses. Chemical anticoagulation contraindicated. Patient with tender right calf. Mechanical DVT prophylaxis contraindicated. Problem Qualifiers (1) Closed right hip fracture: Qualified Code: S72.001A - Closed right hip fracture, initial encounter Mike López MD Oct 06, 2016 11:51
[2016-10-06] MEDS ORDERED: SODIUM CHLOR 0.9% 1000 ML INJ 1,000 ML IV ONE (12:00)
[2016-10-06] MEDS ORDERED: PROPOFOL 200 MG/20 ML AMP IV ONE (12:00)
[2016-10-06] MEDS ORDERED: ONDANSETRON HCL 4 MG/2 ML VIAL IV PUSH ONE (12:00)
[2016-10-06] MEDS ORDERED: NEOSTIGMINE 3 MG/3 ML SYR IV ONE (12:00)
--- NOTE | 2016-10-06 12:03 | PD.ORT.PN ---
Subjective Subjective Remarks POD 0 s/p removal of IMN and conversion to cemented hemiarthroplasty right hip Objective Vitals Vital Signs Date Time Temp Pulse Resp B/P Pulse Ox O2 Delivery O2 Flow Rate FiO2 10/06/16 09:00 58 20 152/68 99 Nasal Cannula 2 10/06/16 08:55 20 10/06/16 07:00 98.3 66 16 146/67 99 Nasal Cannula 2 10/06/16 03:59 66 16 123/60 100 Nasal Cannula 2 10/05/16 20:20 84 16 144/65 99 Nasal Cannula 3 10/05/16 19:53 Nasal Cannula 3.00 10/05/16 19:18 69 16 173/74 95 Nasal Cannula 3 10/05/16 18:09 16 98 Nasal Cannula 3 10/05/16 18:07 66 18 162/70 95 Nasal Cannula 3 10/05/16 17:34 96 Nasal Cannula 3 10/05/16 17:34 96 Nasal Cannula 3 10/05/16 16:48 88 22 140/68 94 Nasal Cannula 10/05/16 14:14 98.8 84 18 151/66 91 I/O 10/05/16 10/05/16 10/05/16 10/06/16 10/06/16 10/06/16 07:00 15:00 23:00 07:00 15:00 23:00 Output Total 400 ml 200 ml Balance -400 ml -200 ml Output Urine Total 400 ml 200 ml # Voids 1 1 Result Diagram: 10/06/16 0350 10/06/16 0350 Other Results Laboratory Tests Test 10/05/16 17:00 Prothrombin Time 10.8 SEC (9.8-11.6) Prothromb Time International 1.0 RATIO Ratio Imaging Last 24 hours Impressions Chest X-Ray 10/05/16 1703 Signed Impressions: Service Date/Time: September 15:25 - CONCLUSION: 1. Mild loss in the right hemithorax with mediastinal shift. 2. Abnormal opacity in the right lung base with blunting of the costophrenic angle and mild hazy opacity in the right upper lobe. The chronicity of findings is not known and these could represent scarring. Atelectasis and partial collapse are also consideration. Pneumonia could have this appearance as well. 3. There are symmetric any old outside studies would be helpful. Sriram Culver MD Objective Remarks RLE: dressings clean and dry. intact. + drain. +knee brace Assessment & Plan Assessment and Plan 1) Right failed intertroch with FLORENTIN and conversion to cemented hemiarthroplasty - POD 0 -50%WB -posterior hip precautions -knee brace while in bed -plan for DC of drain POD 2 -daily dressing changes POD 2 -CM for SNF placement -lovenox/xarelto -scripts on chart -plan for DC to rehab sunday -f/u with Jaiden or DENISE in 2 weeks Christian Barron Oct 06, 2016 12:03
[2016-10-06] MEDS ORDERED: *morphine SULFATE 8 MG/ML PERIprocedure ONLY ONE (12:36)
--- NOTE | 2016-10-06 13:01 | MB ---
cc: MYRTLE LÓPEZ TODD DATE OF CONSULTATION: 10/06/2016 REASON FOR CONSULTATION Right proximal femur fracture. CONSULTING PHYSICIAN Dr. López. HISTORY OF PRESENT ILLNESS Ms. Monet is an 86-year-old female who had a fall several months ago resulting in a right hip intertrochanteric fracture. She underwent surgery at that time for intramedullary nail fixation by Dr. Feng. The patient has had several falls since her previous injury. She has a history of dementia. She states that approximately a week ago she went to sit down but missed the chair and fell. She had immediate right hip pain. Her pain has progressively worsened. She presented to the emergency room where x-rays revealed displacement of the previous right hip intertrochanteric fracture. The lag screw was now protruding through the femoral head. The patient is currently awake in the emergency department. She is confused. Attempts were made to contact her son, but I was unable to reach him to discuss the patient's care. PAST MEDICAL HISTORY ILLNESSES 1. Dementia. 2. Anxiety. 3. Asthma. 4. Reflux. 5. Arthritis. 6. Hypertension. SURGERIES 1. Hysterectomy. 2. Right femur IM nail. MEDICATIONS 1. ProAir. 2. Zofran. 3. Comerio. 4. Trazodone. 5. Symbicort. 6. Metoprolol. 7. Lactulose. 8. Vitamin-D. 9. Meloxicam. 10.Ativan. ALLERGIES No known drug allergies. FAMILY HISTORY Unobtainable secondary to dementia. SOCIAL HISTORY The patient states that she lives at home alone. It is unclear if that is actually the case. She denies alcohol, tobacco or drug use. REVIEW OF SYSTEMS The patient denies headache, visual changes, neck pain, chest pain, shortness of breath, abdominal pain, nausea, vomiting, recent weight loss or numbness or tingling of extremities. She complains of right hip pain. Pain is worse with movement. PHYSICAL EXAMINATION GENERAL: The patient is a pleasant 86-year-old female who is awake but confused. VITAL SIGNS: Temperature 98.8, pulse 58, respirations 20, blood pressure 152/68, O2 sat 99% on two liter nasal cannula. HEAD: The patient is normocephalic. Pupils are equal. NECK: Soft, nontender. Trachea is midline. ABDOMEN: Soft, nontender, nondistended. EXTREMITIES: Examination of bilateral upper extremities reveals no obvious pain or deformity with shoulder, elbow or wrist motion. She has good capillary refill in her fingers. Skin is intact. She has intact sensation in all fingers. Examination of left leg reveals no pain with hip, knee or ankle motion. Skin is intact. Dorsalis pedis pulse is palpable. Sensation is intact. Examination of right leg reveals pain with any hip motion. She has no pain around her knee, tibia or ankle. Skin is intact. Dorsalis pedis pulse is palpable. X-RAYS X-rays of the right hip were reviewed. X-rays reveal right hip intertrochanteric fracture with intramedullary nail in place. The lag screw was cut through the femoral head. 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 PLAN The treatment options were discussed with the patient. At this point I would recommend removal of hardware with conversion to intramedullary nail fixation. The patient does have some dementia. I will attempt to contact family for consents. If family is not available for consents, then I will discuss this with other physicians involved in her care. This is medically necessary given the fact that she has hardware protruding through the femoral head into the acetabulum. This is likely to cause erosion and possible fracture of her acetabulum if not treated promptly. Risks of surgery include bleeding, infection, injuries to arteries, nerves and blood vessels, hip dislocation, leg length discrepancies, as well as medical complications including blood clot, stroke, heart attack and . All questions were answered and I will plan on surgery today. A mid-level provider in my office (nurse practitioner or physician respiratory therapy assistant) may see this patient on follow-up visits and continue to implement the objectives of this plan including: Starting or adjusting medications, injections , cast application, orthotics, brace application, physical therapy, radiological studies (including x-ray, MRI, CT, ultrasound, bone scan), vascular studies, neurologic studies, specialist consultation, and proceeding with surgical management, as appropriate. MD DEVAUGHN Pereira/DEE /11:39 AM /12:51 PM DEVON
--- NOTE | 2016-10-06 13:32 | RADRPT ---
EXAM DATE/TIME: 10/06/2016 12:23 [facility] COMPARISON: No previous studies available for comparison. INDICATIONS : Post-op right hip. MEDICAL HISTORY : Arthritis. SURGICAL HISTORY : Total hip replacement, right. ENCOUNTER: Initial ACUITY: 2 days PAIN SCORE: Non-responsive. LOCATION: Right Hip. FINDINGS: The patient is status post a total hip arthroplasty with a bipolar prosthesis. Prosthesis is well-sea richy. Alignment is anatomic. A fracture is not appreciated. CONCLUSION: Anatomic alignment. Ross Morrison MD FACR Board Certified Radiologist. This report was verified electronically.
[2016-10-06] MEDS: ceFAZolin 2 GM PREMIX 50 ML IV SCH ×2 (14:00→20:08)
[2016-10-06 15:17] LABS: REVIEW FLAG FINAL
--- NOTE | 2016-10-06 16:56 | EKG ---
Date Performed: 10/05/2016 Time Performed: 17:41:33 PTAGE: 86 years EKG: ATRIAL FIBRILLATION POSSIBLE RIGHT VENTRICULAR CONDUCTION DELAY NONSPECIFIC ST & T-WAVE ABN ORMALITY When compared to previous tracing, the atrial fibrillation is new. ABNORMAL RHYTHM ECG PREVIOUS TRACING : 11/26/2015 06.32 DOCTOR: Andrew Ibanez Interpretating Date/Time 10/06/2016 16:54:05
[2016-10-06] MEDS: SODIUM CHLORIDE 0.9% FLUSH 5 ML FLUSH IVF SCH (20:08)
[2016-10-06] MEDS: traZODone HCL 50 MG TAB PO SCH (20:08)
[2016-10-06] MEDS ORDERED: AZITHROMYCIN INJ 500 MG in SODIUM CHLOR 0.9% 250 ML INJ 250 ML IV ONE (21:00)
[2016-10-06] MEDS ORDERED: VANCOMYCIN INJ 1,000 MG in SODIUM CHLOR 0.9% 250 ML INJ 250 ML IV SCH (22:30)
[2016-10-06] MEDS: AZITHROMYCIN 250 MG TAB PO SCH (23:11)
[2016-10-07] VITALS (10 sets, daily range): BP systolic 88–102; BP diastolic 54–68; PULSE 69–119; RESP 16–22; TEMP 95.5–99.6; O2SAT 93–98
[2016-10-07] MEDS: ceFAZolin 2 GM PREMIX 50 ML IV SCH (02:00)
[2016-10-07] MEDS: SODIUM CHLOR 0.9% 1000 ML INJ 1,000 ML IV SCH ×2 (04:28→17:44)
[2016-10-07 07:06] LABS: AUTOMATED NEUTROPHIL # 9.4 TH/MM3 (1.8-7.7); BASOPHIL % 0.2 % (0.0-2.0); HEMATOCRIT 37.7 % (35.0-46.0); HEMO FLAGS DIFF FINAL; LYMPH % 6.2 % (9.0-44.0); LYMPHOCYTE # 0.7 TH/MM3 (1.0-4.8); MEAN CELL VOLUME 85.3 FL (80.0-100.0); MEAN CORPUSCULAR HEMOGLOBIN 29.1 PG (27.0-34.0); MEAN CORPUSCULAR HGB CONC 34.1 % (32.0-36.0); MONO % 8.3 % (0.0-8.0); NEUT % 85.3 % (16.0-70.0); PLATELET COUNT 183 TH/MM3 (150-450); RED BLOOD COUNT 4.42 MIL/MM3 (4.00-5.30); RED CELL DISTRIBUTION WIDTH 15.3 % (11.6-17.2)
[2016-10-07 07:16] LABS: BICARBONATE 22.2 MEQ/L (21.0-32.0); POTASSIUM 3.8 MEQ/L (3.5-5.1)
[2016-10-07] MEDS: PANTOPRAZOLE SOD 20 MG DELAYED RELEASE TAB PO SCH (08:57)
[2016-10-07] MEDS: CHOLECALCIFEROL (VIT D3) 5000 UNIT CAP PO SCH (08:57)
[2016-10-07] MEDS: FAMOTIDINE 20 MG TAB PO SCH ×2 (08:57→20:31)
[2016-10-07] MEDS: METOPROLOL TARTRATE 50 MG TAB PO SCH (08:57)
[2016-10-07] MEDS: SODIUM CHLORIDE 0.9% FLUSH 5 ML FLUSH IVF SCH ×2 (08:58→20:31)
--- NOTE | 2016-10-07 10:15 | PD.ORT.PN ---
Subjective Post Op Day #: 1 Subjective Remarks Pt sitting upright in restrained wheelchair by nurses station. She admits right hip pain is controlled well. No other complaints noted at this time. Objective Vitals Vital Signs Date Time Temp Pulse Resp B/P Pulse Ox O2 Delivery O2 Flow Rate FiO2 10/07/16 08:00 99.6 93 22 92/58 93 10/07/16 04:11 98.3 69 16 88/64 97 10/07/16 01:23 98.2 98 18 92/60 96 10/07/16 01:08 96.4 119 18 98/62 95 10/07/16 00:00 95.5 75 16 92/54 95 10/06/16 22:58 69 88/66 10/06/16 22:35 79 10/06/16 20:51 95.2 67 16 92/56 100 10/06/16 20:36 97.7 56 17 103/68 100 10/06/16 19:34 95.6 69 16 95/53 100 10/06/16 19:01 55 10/06/16 18:16 100 Nasal Cannula 3.00 10/06/16 16:00 95.9 65 16 95/52 100 10/06/16 16:00 97.4 64 12 93/51 98 Nasal Cannula 3 10/06/16 15:45 60 12 92/53 96 10/06/16 15:00 59 12 96/64 96 10/06/16 14:00 62 12 92/47 99 10/06/16 13:45 58 12 103/73 99 10/06/16 13:30 58 12 94/54 98 10/06/16 13:15 57 10 103/51 99 10/06/16 13:15 57 12 103/51 99 10/06/16 13:00 58 10 101/55 99 10/06/16 13:00 58 12 101/55 99 10/06/16 12:45 61 12 138/67 96 10/06/16 12:45 61 12 138/68 96 10/06/16 12:30 65 10 105/73 95 10/06/16 12:15 74 12 109/64 95 10/06/16 12:00 62 12 87/49 95 Nasal Cannula 3 10/06/16 11:51 96.9 65 12 101/50 90 Nasal Cannula 3 I/O 10/06/16 10/06/16 10/06/16 10/07/16 10/07/16 10/07/16 07:00 15:00 23:00 07:00 15:00 23:00 Intake Total 1011 ml 1655 ml Output Total 750 ml 210 ml 260 ml Balance -750 ml 801 ml 1395 ml Intake Oral 90 ml 120 ml IV Total 671 ml 914 ml Packed Cells 250 ml 621 ml Output Urine Total 250 ml 200 ml 150 ml Drainage Total 50 ml 10 ml 110 ml Estimated Blood Loss 400 ml Other 50 ml Bladder Scan Volume Amount 25 ml Result Diagram: 10/07/16 0530 10/07/16 0530 Imaging Last 48 hours Impressions Hip and Pelvis X-Ray 10/06/16 1126 Signed Impressions: Service Date/Time: Thursday, October 06, 2016 12:23 - CONCLUSION: Anatomic alignment. Ross Morrison MD Chest X-Ray 10/05/16 1705 Signed Impressions: Service Date/Time: September 15:25 - CONCLUSION: 1. Mild loss in the right hemithorax with mediastinal shift. 2. Abnormal opacity in the right lung base with blunting of the costophrenic angle and mild hazy opacity in the right upper lobe. The chronicity of findings is not known and these could represent scarring. Atelectasis and partial collapse are also consideration. Pneumonia could have this appearance as well. 3. There are symmetric any old outside studies would be helpful. Sriram Culver MD Procedures Removal of deep hardware, conversion to right hip and knee arthroscopy Objective Remarks RLE: dressings clean and dry. neurovascular intact. venous stasis noted on bright. able to move ankle and toes freely. + drain. + knee brace Assessment & Plan Ortho Post Op Day #: 1 Problem List: (1) Closed right hip fracture (2) Contraindication to anticoagulation therapy (3) Nutrition, metabolism, and development symptoms (4) Pneumonia Assessment and Plan 1) Right failed intertroch with FLORENTIN and conversion to cemented hemiarthroplasty - POD 1 -50%WB -posterior hip precautions -knee brace while in bed -plan for DC of drain POD 2 -daily dressing changes POD 2 -CM for SNF placement -lovenox/xarelto -scripts on chart -plan for DC to rehab sunday -f/u with Jaiden or DENISE in 2 weeks Minnie Rivera Oct 07, 2016 10:15
[2016-10-07] MEDS: ACETAMINOPHEN/HYDROcodone 325 MG/5 MG TAB PO PRN ×2 (10:53→15:07)
[2016-10-07] MEDS: ENOXAPARIN SODIUM 30 MG/0.3 ML SYRINGE SQ SCH (10:53)
--- NOTE | 2016-10-07 11:22 | HHI.FPPN ---
Subjective Remarks Pt seen and examined this morning. Pt reports that she is having occasional shortness of breath[place] [id number]. Patient on nasal cannula 3 L. Patient's nurse reports that her breathing was stable when she was sitting up in a wheelchair by the nurses station. Her position will be readjusted and he will attempt to have her sit up in a wheelchair again later this morning. She denies feeling light headed or dizzy, but does not feel like her normal self. She endorses pain. Objective Vitals Vital Signs Date Time Temp Pulse Resp B/P Pulse Ox O2 Delivery O2 Flow Rate FiO2 10/07/16 08:00 99.6 93 22 92/58 93 10/07/16 04:11 98.3 69 16 88/64 97 10/07/16 01:23 98.2 98 18 92/60 96 10/07/16 01:08 96.4 119 18 98/62 95 10/07/16 00:00 95.5 75 16 92/54 95 10/06/16 22:58 69 88/66 10/06/16 22:35 79 10/06/16 20:51 95.2 67 16 92/56 100 10/06/16 20:36 97.7 56 17 103/68 100 10/06/16 19:34 95.6 69 16 95/53 100 10/06/16 19:01 55 10/06/16 18:16 100 Nasal Cannula 3.00 10/06/16 16:00 95.9 65 16 95/52 100 10/06/16 16:00 97.4 64 12 93/51 98 Nasal Cannula 3 10/06/16 15:45 60 12 92/53 96 10/06/16 15:00 59 12 96/64 96 10/06/16 14:00 62 12 92/47 99 10/06/16 13:45 58 12 103/73 99 10/06/16 13:30 58 12 94/54 98 10/06/16 13:15 57 10 103/51 99 10/06/16 13:15 57 12 103/51 99 10/06/16 13:00 58 10 101/55 99 10/06/16 13:00 58 12 101/55 99 10/06/16 12:45 61 12 138/67 96 10/06/16 12:45 61 12 138/68 96 10/06/16 12:30 65 10 105/73 95 10/06/16 12:15 74 12 109/64 95 10/06/16 12:00 62 12 87/49 95 Nasal Cannula 3 10/06/16 11:51 96.9 65 12 101/50 90 Nasal Cannula 3 I/O 10/06/16 10/06/16 10/06/16 10/07/16 10/07/16 10/07/16 07:00 15:00 23:00 07:00 15:00 23:00 Intake Total 1011 ml 1655 ml Output Total 750 ml 210 ml 260 ml Balance -750 ml 801 ml 1395 ml Intake Oral 90 ml 120 ml IV Total 671 ml 914 ml Packed Cells 250 ml 621 ml Output Urine Total 250 ml 200 ml 150 ml Drainage Total 50 ml 10 ml 110 ml Estimated Blood Loss 400 ml Other 50 ml Bladder Scan Volume Amount 25 ml Result Diagram: 10/07/1652910/07/16 05 Objective Remarks GENERAL: This is a frail elderly patient, in no apparent cardiopulmonary distress. Pleasantly confused. SKIN: Scattered ecchymoses on legs BL. Cool and dry. HEAD: Atraumatic. Normocephalic. No obvious ecchymosis CARDIOVASCULAR: Regular rate and rhythm without murmurs, gallops, or rubs. RESPIRATORY: Clear to auscultation anteriorly but with poor respiratory effort. Decreased breath sounds at lung bases. No wheezes, rales, or rhonchi. GASTROINTESTINAL: Abdomen soft, non-tender, nondistended. No guarding. MUSCULOSKELETAL: Right lower extremity in immobilizer over bandage, which is c/d /i. Wound drain in place, right lower extremity neurovascularly intact. Multiple ecchymosis over bilateral lower legs. NEUROLOGICAL: Awake and alert, pleasantly confused. A/P Assessment and Plan Patient is an 86-year-old with a history of dementia who presents with right femoral neck fracture with displacement of the hardware and possible pneumonia on chest x-ray. Discharge Planning Anticipate discharge to rehabilitation on Sunday sdw Dr. Ji wdw Dr. López Problem List: (1) Closed right hip fracture Status: Acute Plan: Patient postop day #1, s/p removal of right troch nail, conversion to a cemented hemiarthroplasty on 10/06/16. -Orthosis consulted, appreciate intervention and recommendations -Posterior hip precautions -Pain control as below * [place] 5-325 mg 1 tab po Q6 hours prn pain less than 5 * [place] 5-325 2 tabs po Q 4hrs prn pain 5-10 * Morphine prn breakthrough (2) Pneumonia Status: Acute Plan: Patient with chest x-ray concerning for pneumonia. Azithromycin 500 mg by mouth daily 5 days Rocephin 1 g IV every 24 Supplemental oxygen as needed Incentive spirometry DuoNeb's Q4hrs prn Continue home program air 2puffs Q4hrs prn shortness of breath or wheezing (3) Hypotension Status: Acute Plan: Blood pressures ranging from 80s90s/50s60s. Difficult to determine whether patient is symptomatic -We'll hold home metoprolol -NS 500ml bolus 1 (4) Anemia Status: Acute Plan: On 10/06 patient was noted to have H&H of 6.7 and 19.0 respectively. Patient status post transfusion with 3 units of packed RBCs on H&H 12.8 and 37.7 this morning Patient currently denies feeling lightheaded or dizzy Continue to monitor We'll transfuse if hemoglobin drops below 7 (5) Vitamin D deficiency Status: Acute Plan: Vitamin D low at 22.7 -Cholecalciferol 5,000 units PO daily (6) Nutrition, metabolism, and development symptoms Status: Acute Plan: Fluids: Normal saline IV at 85 mL per hour Electrolytes: Replete as necessary, Calcium carbonate 500mg po x1 Nutrition: Regular diet GI prophylaxis: Continue patient's home medications: Pepcid 20 mg PO BID, Protonix 20 mg PO daily (7) No contraindication to deep vein thrombosis (DVT) prophylaxis Status: Acute Plan: -Lovenox Problem Qualifiers (1) Closed right hip fracture: Qualified Code: S72.001A - Closed right hip fracture, initial encounter Juan Luis Mendez MD R2 Oct 07, 2016 11:22
[2016-10-07] MEDS ORDERED: SODIUM CHLORID 0.9% 500 ML INJ 500 ML IV ONE (11:45)
[2016-10-07] MEDS ORDERED: RESP: ALBUTEROL 2.5 MG/IPRATROPIUM 0.5 MG NEB (PRN) NEB (12:15)
[2016-10-07] MEDS: cefTRIAXone INJ 1,000 MG in SODIUM CHLORIDE 0.9% INJ 100 ML IV SCH (12:38)
[2016-10-07] MEDS ORDERED: CALCIUM CARBONATE 1.25 GM (CA 500 MG) TAB PO ONE (14:00)
[2016-10-07] MEDS ORDERED: PILL SPLITTER OTHER PRN (16:00)
[2016-10-07] MEDS: MORPHINE SULFATE 4 MG/ML INJ IV PUSH PRN (17:15)
[2016-10-07] MEDS: traZODone HCL 50 MG TAB PO SCH (20:31)
[2016-10-07] MEDS: AZITHROMYCIN 250 MG TAB PO SCH (23:34)
[2016-10-08] VITALS (12 sets, daily range): BP systolic 106–143; BP diastolic 56–68; PULSE 50–83; RESP 16–20; TEMP 96–98.9; O2SAT 91–100
[2016-10-08] MEDS: SODIUM CHLOR 0.9% 1000 ML INJ 1,000 ML IV SCH (04:51)
[2016-10-08] MEDS: ACETAMINOPHEN/HYDROcodone 325 MG/5 MG TAB PO PRN ×2 (06:01→10:47)
[2016-10-08 07:45] LABS: AUTOMATED NEUTROPHIL # 7.1 TH/MM3 (1.8-7.7); BASOPHIL % 0.4 % (0.0-2.0); EOSINOPHIL # 0.1 TH/MM3 (0-0.4); EOSINOPHIL % 1.5 % (0.0-4.0); HEMATOCRIT 33.6 % (35.0-46.0); HEMO FLAGS DIFF FINAL; LYMPH % 5.8 % (9.0-44.0); LYMPHOCYTE # 0.5 TH/MM3 (1.0-4.8); MEAN CELL VOLUME 84.8 FL (80.0-100.0); MEAN CORPUSCULAR HEMOGLOBIN 30.3 PG (27.0-34.0); MEAN CORPUSCULAR HGB CONC 35.7 % (32.0-36.0); MONO % 10.8 % (0.0-8.0); NEUT % 81.5 % (16.0-70.0); PLATELET COUNT 178 TH/MM3 (150-450); RED BLOOD COUNT 3.96 MIL/MM3 (4.00-5.30); RED CELL DISTRIBUTION WIDTH 15.2 % (11.6-17.2); WHITE BLOOD COUNT 8.7 TH/MM3 (4.0-11.0)
[2016-10-08 08:19] LABS: BICARBONATE 26.6 MEQ/L (21.0-32.0); POTASSIUM 3.2 MEQ/L (3.5-5.1)
[2016-10-08] MEDS: PANTOPRAZOLE SOD 20 MG DELAYED RELEASE TAB PO SCH (08:43)
[2016-10-08] MEDS: CHOLECALCIFEROL (VIT D3) 5000 UNIT CAP PO SCH (08:43)
[2016-10-08] MEDS: FAMOTIDINE 20 MG TAB PO SCH ×2 (08:43→20:15)
[2016-10-08] MEDS: SODIUM CHLORIDE 0.9% FLUSH 5 ML FLUSH IVF SCH ×2 (08:43→20:15)
--- NOTE | 2016-10-08 08:54 | PD.ORT.PN ---
Subjective Post Op Day #: 2 Subjective Remarks Pt sitting upright in bed eating breakfast, pleasantly confused, answering questions. She admits right hip pain is controlled well. RN noted the patient pulled out her drain late last night and held the tubing to her mouth. No other complaints noted at this time. Objective Vitals Vital Signs Date Time Temp Pulse Resp B/P Pulse Ox O2 Delivery O2 Flow Rate FiO2 10/08/16 04:00 98.9 74 16 143/68 97 10/08/16 00:00 96.5 83 20 114/57 91 10/07/16 21:00 74 10/07/16 20:00 98.3 69 16 102/57 98 10/07/16 17:36 78 10/07/16 16:00 96.9 82 22 100/68 98 10/07/16 10:13 97 Nasal Cannula 3.00 I/O 10/07/16 10/07/16 10/07/16 10/08/16 10/08/16 10/08/16 07:00 15:00 23:00 07:00 15:00 23:00 Intake Total 1655 ml 1824 ml 662 ml Output Total 260 ml 255 ml Balance 1395 ml 1569 ml 662 ml Intake Oral 120 ml 240 ml IV Total 914 ml 1584 ml 662 ml Packed Cells 621 ml Output Urine Total 150 ml 255 ml Drainage Total 110 ml Bladder Scan Volume Amount 25 ml # Bowel Movements 0 Result Diagram: 10/08/16 0714 10/08/16 0714 Imaging Last 48 hours Impressions Hip and Pelvis X-Ray 10/06/16 1126 Signed Impressions: Service Date/Time: Thursday, October 06, 2016 12:23 - CONCLUSION: Anatomic alignment. Ross Morrison MD Chest X-Ray 10/05/16 1705 Signed Impressions: Service Date/Time: September 15:25 - CONCLUSION: 1. Mild loss in the right hemithorax with mediastinal shift. 2. Abnormal opacity in the right lung base with blunting of the costophrenic angle and mild hazy opacity in the right upper lobe. The chronicity of findings is not known and these could represent scarring. Atelectasis and partial collapse are also consideration. Pneumonia could have this appearance as well. 3. There are symmetric any old outside studies would be helpful. Sriram Culver MD Procedures Removal of deep hardware, conversion to right hip and knee arthroscopy Objective Remarks RLE: dressings clean and dry. neurovascular intact. tender over right lower extremity. venous stasis noted on bright. able to move ankle and toes freely. + knee brace Assessment & Plan Ortho Post Op Day #: 2 Problem List: (1) Closed right hip fracture (2) Contraindication to anticoagulation therapy (3) Nutrition, metabolism, and development symptoms (4) Pneumonia Assessment and Plan 1) Right failed intertroch with FLORENTIN and conversion to cemented hemiarthroplasty - POD 2 -50%WB -posterior hip precautions -knee brace while in bed -daily dressing changes POD 2 -CM for SNF placement -lovenox/xarelto -scripts on chart -plan for DC to rehab sunday -f/u with Jaiden or DENISE in 2 weeks Minnie Rivera Oct 08, 2016 08:54
--- NOTE | 2016-10-08 09:03 | HHI.FPPN ---
Subjective Remarks Afebrile and vital signs stable overnight. Per nurse report, pt was much more alert, aware, conversational yesterday. She began to get restless, confused in the middle of the night, until she got some morphine at 4am, which seemed to help significantly. Per nurse report, patient pulled out her SHAI drain, and she tried to drink from it. Patient reports feeling well. She reports good appetite and liking her breakfast. She endorses some chest discomfort, which is at baseline. She denies any shortness of breath, fever, chills, weakness, fatigue. She reports good motor and sensory function of her feet, including the right foot distal to the injury. However, she does endorse significant right ankle pain. Patient constipated per nurse report. (Sriram Ji MD R1) Objective Vitals Vital Signs Date Time Temp Pulse Resp B/P Pulse Ox O2 Delivery O2 Flow Rate FiO2 10/08/16 04:00 98.9 74 16 143/68 97 10/08/16 00:00 96.5 83 20 114/57 91 10/07/16 21:00 74 10/07/16 20:00 98.3 69 16 102/57 98 10/07/16 17:36 78 10/07/16 16:00 96.9 82 22 100/68 98 10/07/16 10:13 97 Nasal Cannula 3.00 I/O 10/07/16 10/07/16 10/07/16 10/08/16 10/08/16 10/08/16 07:00 15:00 23:00 07:00 15:00 23:00 Intake Total 1655 ml 1824 ml 662 ml Output Total 260 ml 255 ml Balance 1395 ml 1569 ml 662 ml Intake Oral 120 ml 240 ml IV Total 914 ml 1584 ml 662 ml Packed Cells 621 ml Output Urine Total 150 ml 255 ml Drainage Total 110 ml Bladder Scan Volume Amount 25 ml # Bowel Movements 0 (Sriram Ji MD R1) Result Diagram: 10/08/16 0714 10/08/16 0714 Imaging Last Impressions Ankle X-Ray 10/08/16 0000 Signed Impressions: Service Date/Time: Saturday, October 08, 2016 09:24 - CONCLUSION: 1. Diffuse soft tissue swelling. 2. No acute fracture or joint dislocation. 3. Osteopenia and primary degenerative changes. Mike Bedoya MD Hip and Pelvis X-Ray 10/06/16 1126 Signed Impressions: Service Date/Time: Thursday, October 06, 2016 12:23 - CONCLUSION: Anatomic alignment. Ross Morrison MD Chest X-Ray 10/05/16 1705 Signed Impressions: Service Date/Time: September 15:25 - CONCLUSION: 1. Mild loss in the right hemithorax with mediastinal shift. 2. Abnormal opacity in the right lung base with blunting of the costophrenic angle and mild hazy opacity in the right upper lobe. The chronicity of findings is not known and these could represent scarring. Atelectasis and partial collapse are also consideration. Pneumonia could have this appearance as well. 3. There are symmetric any old outside studies would be helpful. Sriram Culver MD Objective Remarks GENERAL: This is a frail elderly patient, in no apparent cardiopulmonary distress. Pleasantly confused. SKIN: Scattered ecchymoses on legs BL. Cool and dry. HEAD: Atraumatic. Normocephalic. No obvious ecchymosis CARDIOVASCULAR: Regular rate and rhythm without murmurs, gallops, or rubs. RESPIRATORY: Clear to auscultation anteriorly but with poor respiratory effort. Decreased breath sounds at lung bases. No wheezes, rales, or rhonchi. GASTROINTESTINAL: Abdomen soft, non-tender, nondistended. No guarding. MUSCULOSKELETAL: Right lower extremity in immobilizer over bandage, which is c/d /i. Wound drain in place, right lower extremity neurovascularly intact. Multiple ecchymosis over bilateral lower legs. Right ankle swollen, edematous, ecchymotic, tender to palpation and movement. NEUROLOGICAL: Awake and alert, pleasantly confused. (Sriram Ji MD R1) A/P Assessment and Plan Patient is an 86-year-old with a history of dementia who presents with right femoral neck fracture with displacement of the hardware and possible pneumonia on chest x-ray. Discharge Planning Anticipate discharge to rehabilitation on Sunday dw Dr. López (Sriram Ji MD R1) Attending Attestation Pt. examined and case discussed with resident physician I have read the above note and agree with the assessment/plan as discussed with me I was involved in all medical decision making for this patient Mike López MD (Mike López MD) Problem List: (1) Closed right hip fracture Status: Acute Plan: Patient postop day #2, s/p removal of right troch nail, conversion to a cemented hemiarthroplasty on 10/06/16. -Ortho consulted, appreciate intervention and recommendations as below: -50%WB -posterior hip precautions -knee brace while in bed -daily dressing changes -CM for SNF placement - left voicemail -lovenox/xarelto -scripts on chart -plan for DC to rehab sunday -f/u with Jaiden or DENISE in 2 weeks -Pain control as below * [place] 5-325 mg 1 tab po Q6 hours prn pain less than 5 * [place] 5-325 2 tabs po Q 4hrs prn pain 5-10 * Morphine prn breakthrough (2) Pneumonia Status: Acute Plan: Patient with chest x-ray concerning for pneumonia. Azithromycin 500 mg by mouth daily 5 days, started on 10/06/16 Rocephin 1 g IV every 24, started on 10/07/16 Anticipate discharge on Levaquin by mouth for 5-14 days Supplemental oxygen as needed Incentive spirometry DuoNeb's Q4hrs prn Continue home program air 2puffs Q4hrs prn shortness of breath or wheezing (3) Constipation Status: Acute Plan: Patient comes. Per nurse report. Stepwise therapy: Jade-Colace one tab by mouth twice a day Milk of magnesia 30 mL by mouth daily when necessary for constipation Dulcolax suppository 10 mg [place] daily when necessary for constipation Fleets enema [place] when necessary for constipation Disimpact bowels if necessary (4) Hypokalemia Status: Acute Plan: Patient with potassium of 3.2 today. KCl 40 mg by mouth 1 today Recheck BMP tomorrow (5) Hypotension Status: Resolved Plan: Blood pressures improved after fluid bolus yesterday; bp >100/50s. Difficult to determine whether patient is symptomatic -We'll hold home metoprolol (6) Anemia Status: Acute Plan: On 10/06 patient was noted to have H&H of 6.7 and 19.0 respectively. Patient status post transfusion with 3 units of packed RBCs on H&H 12.0 and 33.6 this morning Patient currently denies feeling lightheaded or dizzy Continue to monitor We'll transfuse if hemoglobin drops below 7 (7) Vitamin D deficiency Status: Acute Plan: Vitamin D low at 22.7 -Cholecalciferol 5,000 units PO daily (8) Nutrition, metabolism, and development symptoms Status: Acute Plan: Fluids: Discontinue Normal saline IV at 85 mL per hour because patient hydrating well by mouth Electrolytes: Continue to monitor and replete as necessary, KCl 40 mEq by mouth 1 today, see hypoK+ Nutrition: Regular diet GI prophylaxis: Continue patient's home medications: Pepcid 20 mg PO BID, Protonix 20 mg PO daily (9) No contraindication to deep vein thrombosis (DVT) prophylaxis Status: Acute Plan: -Lovenox (Sriram Ji MD R1) Problem Qualifiers (1) Closed right hip fracture: Qualified Code: S72.001A - Closed right hip fracture, initial encounter Sriram Ji MD R1 Oct 08, 2016 09:03 Mike Lóepz MD Oct 08, 2016 17:11
[2016-10-08] MEDS ORDERED: POTASSIUM CHLORIDE 10 MEQ CONTROLLED RELEASE TAB PO ONE (09:45)
--- NOTE | 2016-10-08 10:03 | RADRPT ---
EXAM DATE/TIME: 10/08/2016 09:24 [place] COMPARISON: No previous studies available for comparison. INDICATIONS : Right ankle pain. Post fall three days ago. MEDICAL HISTORY : None. SURGICAL HISTORY : Right hip. ENCOUNTER: Initial ACUITY: 3 days PAIN SCORE: 7/10 LOCATION: Right ankle. FINDINGS: Three view exam was performed of the right ankle. There is diffuse soft tissue swelling around the an kle. There is osteopenia of the bony structures as well as some primary degenerative changes.. No tomi nt dislocation is seen. No definite bony fracture is demonstrated. No foreign bodies are demonstrated . There are calcifications in the soft tissues characteristic of PVD. CONCLUSION: 1. Diffuse soft tissue swelling. 2. No acute fracture or joint dislocation. 3. Osteopenia and primary degenerative changes. Mike Bedoya MD on October 08, 2016 at 10:00 Board Certified Radiologist. This report was verified electronically.
[2016-10-08] MEDS: ENOXAPARIN SODIUM 30 MG/0.3 ML SYRINGE SQ SCH (10:47)
[2016-10-08] MEDS ORDERED: MAGNESIUM HYDROXIDE SUSP 30 ML CUP PO PRN (11:30)
[2016-10-08] MEDS ORDERED: BISACODYL 10 MG SUPP RECTAL PRN (11:30)
[2016-10-08] MEDS ORDERED: SOD PHOSPHATE/SOD BIPHOSPHATE (ADULT) ENEMA 133ML PR PRN (11:30)
[2016-10-08] MEDS: cefTRIAXone INJ 1,000 MG in SODIUM CHLORIDE 0.9% INJ 100 ML IV SCH (12:32)
[2016-10-08] MEDS: DOCUSATE SODIUM 50 MG/SENNA 8.6 MG TAB PO SCH ×2 (12:33→20:15)
[2016-10-08] MEDS: MORPHINE SULFATE 4 MG/ML INJ IV PUSH PRN (13:28)
[2016-10-08] MEDS: traZODone HCL 50 MG TAB PO SCH (20:15)
[2016-10-09] VITALS: BP 100/66; PULSE 79; RESP 20; TEMP 96.9; O2SAT 98
[2016-10-09] MEDS: AZITHROMYCIN 250 MG TAB PO SCH (00:01)
[2016-10-09 08:00] VITALS: BP_SYST 136; BP_SYST 144; BP_DIAS 59; BP_DIAS 78; PULSE 82; PULSE 83; RESP 17; RESP 18; TEMP 97.1; TEMP 98.2; O2SAT 95; O2SAT 98
--- NOTE | 2016-10-09 08:04 | PD.ORT.PN ---
Subjective Subjective Remarks Comfortable no new complaints Objective Vitals Vital Signs Date Time Temp Pulse Resp B/P Pulse Ox O2 Delivery O2 Flow Rate FiO2 10/09/16 00:00 96.9 79 20 100/66 98 10/08/16 22:36 83 10/08/16 22:09 Nasal Cannula 2.00 10/08/16 22:01 71 10/08/16 22:00 52 10/08/16 21:55 50 10/08/16 19:57 96.0 80 18 106/61 99 10/08/16 17:42 68 10/08/16 16:00 96.1 78 18 138/65 100 10/08/16 12:00 97.8 71 18 113/62 97 10/08/16 10:00 94 Nasal Cannula 2.00 I/O 10/08/16 10/08/16 10/08/16 10/09/16 10/09/16 10/09/16 07:00 15:00 23:00 07:00 15:00 23:00 Intake Total 662 ml 600 ml 694 ml 724 ml Output Total 375 ml Balance 662 ml 225 ml 694 ml 724 ml Intake Oral 600 ml 300 ml 240 ml IV Total 662 ml 394 ml 484 ml Output Urine Total 375 ml # Voids 1 2 # Bowel Movements 2 1 2 Result Diagram: 10/08/1614 10/08/1614 Imaging Last 48 hours Impressions Hip and Pelvis X-Ray 10/06/16 1126 Signed Impressions: Service Date/Time: Thursday, October 06, 2016 12:23 - CONCLUSION: Anatomic alignment. Ross Morrison MD Chest X-Ray 10/05/16 1705 Signed Impressions: Service Date/Time: September 15:25 - CONCLUSION: 1. Mild loss in the right hemithorax with mediastinal shift. 2. Abnormal opacity in the right lung base with blunting of the costophrenic angle and mild hazy opacity in the right upper lobe. The chronicity of findings is not known and these could represent scarring. Atelectasis and partial collapse are also consideration. Pneumonia could have this appearance as well. 3. There are symmetric any old outside studies would be helpful. Sriram Culver MD Procedures Removal of deep hardware, conversion to right hip and knee arthroscopy Objective Remarks RLE: dressings clean and dry. neurovascular intact. tender over right lower extremity. venous stasis noted on bright. able to move ankle and toes freely. + knee brace Assessment & Plan Problem List: (1) Closed right hip fracture (2) Contraindication to anticoagulation therapy (3) Nutrition, metabolism, and development symptoms (4) Pneumonia Assessment and Plan 1) Right failed intertroch with [place] and conversion to cemented hemiarthroplasty - POD 3 -50%WB -posterior hip precautions -knee brace while in bed -daily dressing changes -CM for SNF placement -lovenox/xarelto -scripts on chart -plan for DC to rehab when bed available -f/u with Jaiden or DENISE in 2 weeks SRIRAM PEÑA PA-C Oct 09, 2016 08:04
[2016-10-09 08:07] VITALS: O2SAT 99
--- NOTE | 2016-10-09 08:46 | HHI.FPPN ---
Subjective Remarks Pt seen and examined this morning. No acute events overnight. Pt reports that she feels short of breath occasionally, endorses cough. Pain in right lower extremity has been well controlled with medication. (Juan Luis Mendez MD R2) Objective Vitals Vital Signs Date Time Temp Pulse Resp B/P Pulse Ox O2 Delivery O2 Flow Rate FiO2 10/09/16 00:00 96.9 79 20 100/66 98 10/08/16 22:36 83 10/08/16 22:09 Nasal Cannula 2.00 10/08/16 22:01 71 10/08/16 22:00 52 10/08/16 21:55 50 10/08/16 19:57 96.0 80 18 106/61 99 10/08/16 17:42 68 10/08/16 16:00 96.1 78 18 138/65 100 10/08/16 12:00 97.8 71 18 113/62 97 10/08/16 10:00 94 Nasal Cannula 2.00 I/O 10/08/16 10/08/16 10/08/16 10/09/16 10/09/16 10/09/16 07:00 15:00 23:00 07:00 15:00 23:00 Intake Total 662 ml 600 ml 694 ml 724 ml Output Total 375 ml Balance 662 ml 225 ml 694 ml 724 ml Intake Oral 600 ml 300 ml 240 ml IV Total 662 ml 394 ml 484 ml Output Urine Total 375 ml # Voids 1 2 # Bowel Movements 2 1 2 (Juan Luis Mendez MD R2) Result Diagram: 10/08/1671310/08/1614 Objective Remarks GENERAL: This is a frail elderly patient, in no acute distress, resting comfortably in bed. Pleasantly confused. SKIN: Scattered ecchymoses on legs BL. Cool and dry. HEAD: Atraumatic. Normocephalic. No obvious ecchymosis CARDIOVASCULAR: Regular rate and rhythm without murmurs, gallops, or rubs. RESPIRATORY: Clear to auscultation anteriorly but with poor respiratory effort. Decreased breath sounds at lung bases. No wheezes, rales, or rhonchi. GASTROINTESTINAL: Abdomen soft, non-tender, nondistended. No guarding. MUSCULOSKELETAL: Right lower extremity in immobilizer over bandage, which is c/d /i. Dressing on right lateral thigh c/d/i. Right lower extremity neurovascularly intact. Multiple ecchymosis over bilateral lower legs. Right ankle swollen, edematous, ecchymotic, tender to palpation and movement. Left lower extremity neurovascularly intact. NEUROLOGICAL: Awake and alert, pleasantly confused. (Juan uLis Mendez MD R2) A/P Assessment and Plan Patient is an 86-year-old with a history of dementia who presents with right femoral neck fracture with displacement of the hardware and possible pneumonia on chest x-ray. Discharge Planning Anticipate discharge to rehabilitation later today sdw Dr. Ji wdw Dr. Villegas (Juan Luis Mendez MD R2) Attending Attestation Patient seen and examined. Case reviewed and discussed Agree with plan of care as discussed with me and documented in the resident note. Sitting up in the chair, NC in place. Per nursing, no acute events. Rehab placement today pending labs. (Janet Villegas MD) Problem List: (1) Closed right hip fracture Status: Acute Plan: Patient postop day #3, s/p removal of right troch nail, conversion to a cemented hemiarthroplasty on 10/06/16. -Ortho consulted, appreciate intervention and recommendations as below: -50%WB -posterior hip precautions -knee brace while in bed -daily dressing changes -Case management to make arrangements for patient placement -f/u with Jaiden or DENISE in 2 weeks -Pain control as below * [place] 5-325 mg 1 tab po Q6 hours prn pain less than 5 * [place] 5-325 2 tabs po Q 4hrs prn pain 5-10 * Morphine prn breakthrough (2) Pneumonia Status: Acute Plan: Patient with chest x-ray concerning for pneumonia. Azithromycin 500 mg by mouth daily 5 days, started on 10/06/16 Rocephin 1 g IV every 24, started on 10/07/16 Anticipate discharge on oral Levaquin Supplemental oxygen as needed Incentive spirometry DuoNeb's Q4hrs prn Continue home Pro air 2puffs Q4hrs prn shortness of breath or wheezing (3) Constipation Status: Acute Plan: Resolved Pt required manual disimpaction (4) Hypokalemia Status: Acute Plan: Patient with potassium of 3.2 on 10/08 Repleted with KCl 40 mg by mouth 1 Labs pending for this morning (5) Hypotension Status: Resolved Plan: Patient with labile blood pressures, ranging from [id number]/. She has been mostly hypotensive. - Hold home metoprolol, consider resuming if blood pressures become elevated - Continue to monitor (6) Anemia Status: Acute Plan: On 10/06 patient was noted to have H&H of 6.7 and 19.0 respectively. Patient status post transfusion with 3 units of packed RBCs on H&H 12.0 and 33.6 on 10/08 Patient currently denies feeling lightheaded or dizzy Continue to monitor We'll transfuse if hemoglobin drops below 7 (7) Vitamin D deficiency Status: Acute Plan: Vitamin D low at 22.7 -Cholecalciferol 5,000 units PO daily (8) Abnormal EKG Status: Acute Plan: On admission EKG with slightly irregular rhythm. There are identifiable p waves, no axis deviation. -Will repeat ekg -QT interval normal at 386 (9) Nutrition, metabolism, and development symptoms Status: Acute Plan: Fluids: None Electrolytes: Continue to monitor and replete as necessary, see hypokalemia above. Nutrition: Regular diet GI prophylaxis: Continue patient's home medications: Pepcid 20 mg PO BID, Protonix 20 mg PO daily (10) No contraindication to deep vein thrombosis (DVT) prophylaxis Status: Acute Plan: -Lovenox (Juan Luis Mendez MD R2) Problem Qualifiers (1) Closed right hip fracture: Qualified Code: S72.001A - Closed right hip fracture, initial encounter Juan Luis Mendez MD R2 Oct 09, 2016 08:46 Janet Villegas MD Oct 09, 2016 11:28
[2016-10-09] MEDS: CHOLECALCIFEROL (VIT D3) 5000 UNIT CAP PO SCH (09:00)
[2016-10-09] MEDS: DOCUSATE SODIUM 50 MG/SENNA 8.6 MG TAB PO SCH (09:00)
[2016-10-09] MEDS: PANTOPRAZOLE SOD 20 MG DELAYED RELEASE TAB PO SCH (09:42)
[2016-10-09] MEDS: FAMOTIDINE 20 MG TAB PO SCH (09:43)
[2016-10-09] MEDS: SODIUM CHLORIDE 0.9% FLUSH 5 ML FLUSH IVF SCH (09:43)
[2016-10-09] MEDS: ACETAMINOPHEN/HYDROcodone 325 MG/5 MG TAB PO PRN (09:46)
--- NOTE | 2016-10-09 10:01 | HHI.DCPOC ---
Discharge Care Plan Diagnosis: (1) Anemia (2) Hypokalemia (3) Hypotension (4) Pneumonia (5) Vitamin D deficiency (6) Closed right hip fracture Goals to Promote Your Health * To prevent worsening of your condition and complications * To maintain your health at the optimal level Directions to Meet Your Goals Take your medications as prescribed Follow your dietary instruction Follow activity as directed Keep your appointments as scheduled Take your immunizations and boosters as scheduled If your symptoms worsen call your PCP, if no PCP go to Urgent Care Center or Emergency Room Smoking is Dangerous to Your Health. Avoid second hand smoke Call the 24-hour hour crisis hotline for domestic abuse at Juan Luis Mendez MD R2 Oct 09, 2016 10:01
[2016-10-09] MEDS ORDERED: PERI8.6T PO (10:24)
[2016-10-09] MEDS ORDERED: LEVA750T PO (10:24)
[2016-10-09 10:45] LABS: BASOPHIL % 0.3 % (0.0-2.0); EOSINOPHIL # 0.2 TH/MM3 (0-0.4); EOSINOPHIL % 3.3 % (0.0-4.0); HEMATOCRIT 38.8 % (35.0-46.0); HEMO FLAGS DIFF FINAL; LYMPH % 15.7 % (9.0-44.0); LYMPHOCYTE # 1.1 TH/MM3 (1.0-4.8); MEAN CELL VOLUME 87.2 FL (80.0-100.0); MEAN CORPUSCULAR HEMOGLOBIN 29.7 PG (27.0-34.0); MEAN CORPUSCULAR HGB CONC 34.1 % (32.0-36.0); MONO % 11.3 % (0.0-8.0); NEUT % 69.4 % (16.0-70.0); PLATELET COUNT 186 TH/MM3 (150-450); RED BLOOD COUNT 4.45 MIL/MM3 (4.00-5.30); RED CELL DISTRIBUTION WIDTH 15.2 % (11.6-17.2); WHITE BLOOD COUNT 7.2 TH/MM3 (4.0-11.0)
[2016-10-09 11:01] LABS: BICARBONATE 21.3 MEQ/L (21.0-32.0); POTASSIUM 3.6 MEQ/L (3.5-5.1)
[2016-10-09] MEDS: ENOXAPARIN SODIUM 30 MG/0.3 ML SYRINGE SQ SCH (11:21)
[2016-10-09 11:58] LABS: CALCIUM-PROTEIN CORRECTED 9.1 MG/DL (8.5-10.1)
[2016-10-09 12:00] VITALS: BP 136/59; PULSE 82; RESP 18; TEMP 97.1; O2SAT 95
[2016-10-09] MEDS ORDERED: METO25TA3 PO (12:17)
[2016-10-09] MEDS: cefTRIAXone INJ 1,000 MG in SODIUM CHLORIDE 0.9% INJ 100 ML IV SCH (13:29)
[2016-10-09 15:00] VITALS: PULSE 75
[2016-10-09 16:00] VITALS: BP 152/82; PULSE 94; RESP 17; TEMP 97.6; O2SAT 95
--- NOTE | 2016-10-10 10:43 | EKG ---
Date Performed: 10/09/2016 Time Performed: 15:35:33 PTAGE: 86 years EKG: Sinus rhythm WITH OCCASIONAL SUPRAVENTRICULAR PREMATURE COMPLEXES POSSIBLE RIGHT VENTRICULAR CONDUCTION DELAY MIN IMAL ST DEPRESSION BORDERLINE ECG Compared to PREVIOUS TRACING the patient is no longer in afib. PREVIOUS TRACIN10/05/2016 17.41 DOCTOR: Jose Alejandro Szymanski Interpretating Date/Time 10/10/2016 10:42:55
--- NOTE | 2016-12-04 03:23 | HHI.DS ---
Discharge Summary Admission Date Oct 05, 2016 at 17:36 Admitting Diagnosis right hip fracture (1) Closed right hip fracture Diagnosis: Principal Plan: Patient s/p removal of right troch nail, conversion to a cemented hemiarthroplasty on 10/06/16. -Ortho consulted, appreciate intervention and recommendations as below: -50%WB -posterior hip precautions -knee brace while in bed -daily dressing changes -Case management to make arrangements for patient placement -f/u with Jaiden or [facility]ISE in 2 weeks -Pain control as below * Jenners 5-325 mg 1 tab po Q6 hours prn pain less than 5 * Jenners 5-325 2 tabs po Q 4hrs prn pain 5-10 * Morphine prn breakthrough (2) Pneumonia Diagnosis: Principal Plan: Patient with chest x-ray concerning for pneumonia. Azithromycin 500 mg by mouth daily 5 days, started on 10/06/16 Rocephin 1 g IV every 24, started on 10/07/16 Discharge on oral Levaquin Supplemental oxygen as needed Incentive spirometry DuoNeb's Q4hrs prn Continue home Pro air 2puffs Q4hrs prn shortness of breath or wheezing (3) Constipation Diagnosis: Secondary Plan: Resolved Pt required manual disimpaction (4) Hypokalemia Diagnosis: Secondary Plan: Patient with potassium of 3.2 on 10/08 Repleted with KCl 40 mg by mouth 1 Labs pending for this morning (5) Hypotension Diagnosis: Secondary Plan: Patient with labile blood pressures, ranging from [id number]/. She has been mostly hypotensive. - Hold home metoprolol, consider resuming if blood pressures become elevated - Continue to monitor (6) Anemia Diagnosis: Principal Plan: On 10/06 patient was noted to have H&H of 6.7 and 19.0 respectively. Patient status post transfusion with 3 units of packed RBCs on H&H 12.0 and 33.6 on 10/08 Patient currently denies feeling lightheaded or dizzy Continue to monitor We'll transfuse if hemoglobin drops below 7 (7) Vitamin D deficiency Diagnosis: Secondary Plan: Vitamin D low at 22.7 -Cholecalciferol 5,000 units PO daily (8) Abnormal EKG Diagnosis: Secondary Plan: On admission EKG with slightly irregular rhythm. There are identifiable p waves, no axis deviation. -Will repeat ekg -QT interval normal at 386 (9) Nutrition, metabolism, and development symptoms Plan: Fluids: None Electrolytes: Continue to monitor and replete as necessary, see hypokalemia above. Nutrition: Regular diet GI prophylaxis: Continue patient's home medications: Pepcid 20 mg PO BID, Protonix 20 mg PO daily (10) No contraindication to deep vein thrombosis (DVT) prophylaxis Diagnosis: Secondary Plan: -[facility] Orthopedic surgery Brief History According to patient with h/o dementia, about a week ago she went to sit down and there was no chair, so she fell. Since that time, she has had pain in her right lower leg, right thigh, and right groin. She tried OTC pain medications, but they don't help much. She went to see her PCP today. History is otherwise limited by patient's dementia. From ED provider note: Patient comes in via EMS. Reportedly came back from her primary care doctor's office complaining of worsening right hip pain and family was unable to get patient in the front seat of a car, so they called EMS. Per EMS, patient is scheduled to have surgery in 2 days at this hospital and requests that she be brought here for possible admission and surgery. Family did not report any new injury to EMS. Patient reports pain in her right hip that radiates distally. Is worse with movement. Denies any other complaints. Denies any chest pain, shortness of breath, abdominal pain, or known fevers. Patient does not know who is suppose to perform the surgery or who her primary care doctor is. Per EMS, patient does have a history of dementia. Imaging Last Impressions Ankle X-Ray 10/08/16 0000 Signed Impressions: Service Date/Time: Saturday, October 08, 2016 09:24 - CONCLUSION: 1. Diffuse soft tissue swelling. 2. No acute fracture or joint dislocation. 3. Osteopenia and primary degenerative changes. Mike Bedoya MD Hip and Pelvis X-Ray 10/06/16 1126 Signed Impressions: Service Date/Time: Thursday, October 06, 2016 12:23 - CONCLUSION: Anatomic alignment. Ross Morrison MD Chest X-Ray 10/05/16 1705 Signed Impressions: Service Date/Time: September 15:25 - CONCLUSION: 1. Mild loss in the right hemithorax with mediastinal shift. 2. Abnormal opacity in the right lung base with blunting of the costophrenic angle and mild hazy opacity in the right upper lobe. The chronicity of findings is not known and these could represent scarring. Atelectasis and partial collapse are also consideration. Pneumonia could have this appearance as well. 3. There are symmetric any old outside studies would be helpful. Sriram Culver MD PE at Discharge GENERAL: This is a frail elderly patient, in no acute distress, resting comfortably in bed. Pleasantly confused. SKIN: Scattered ecchymoses on legs BL. Cool and dry. HEAD: Atraumatic. Normocephalic. No obvious ecchymosis CARDIOVASCULAR: Regular rate and rhythm without murmurs, gallops, or rubs. RESPIRATORY: Clear to auscultation anteriorly but with poor respiratory effort. Decreased breath sounds at lung bases. No wheezes, rales, or rhonchi. GASTROINTESTINAL: Abdomen soft, non-tender, nondistended. No guarding. MUSCULOSKELETAL: Right lower extremity in immobilizer over bandage, which is c/d /i. Dressing on right lateral thigh c/d/i. Right lower extremity neurovascularly intact. Multiple ecchymosis over bilateral lower legs. Right ankle swollen, edematous, ecchymotic, tender to palpation and movement. Left lower extremity neurovascularly intact. NEUROLOGICAL: Awake and alert, pleasantly confused. Hospital Course Pt was admitted for surgical repair of closed right hip fracture for which orthopedic surgery was consulted. Pt underwent surgical removal of right trochanteric nail, conversion to a cemented hemiarthroplasty on 10/06/16. Notably , on 10/06, patient was noted to have H&H of 6.7 and 19.0 respectively for which she received transfusion with 3 units of packed RBCs on . H&H responded appropriately to transfusions. Pt also also incidentally noted to have a pneumonia on chest x-ray, which was treated with Rocephin and Azithromycin in the hospital, and the pt was discharged on Levaquin. Pt Condition on Discharge: Stable Discharge Disposition: Discharge to SNF Discharge Instructions DIET: Follow Instructions for: As Tolerated, No Restrictions Activities you can perform: Partial Weight Bearing Follow up Referrals: Orthopedics - 10/20/16 @ [facility] with Raymon Hwang MD PCP Follow-up - 1 Week New Medications: Hydrocodone-Acetaminophen (Jenners) 7.5-325 mg Tab 1 TAB PO Q4H PRN PAIN #60 Ref 0 TAB Levofloxacin (Levaquin) 750 Mg Tab 750 MG PO DAILY Infection #6 Ref 0 TAB Metoprolol Tartrate (Metoprolol Tartrate) 25 Mg Tab 12.5 MG PO BID #60 Ref 0 TAB Rivaroxaban (Xarelto) 10 Mg Tab 10 MG PO DAILY Blood Clot Prevention #21 Ref 0 TAB Sennosides-Docusate Sodium (Jade-Colace) 8.6-50 Mg Tab 1 TAB PO BID Constipation #60 Ref 0 TAB Walker/Adult/Folding (Walker/Adult/Folding) 1 Mis Mis 1 EA .ROUTE DIRECTED #1 Ref 0 EA Continued Medications: Albuterol 8.5 GM Inh (Proair Hfa 8.5 GM Inh) Unknown Strength Aer Unknown Dose INH QID 108 mcg/actuation PRN SHORTNESS OF BREATH #1 Ref 0 INHALER Ascorbic Acid (Vitamin C) 500 Mg Chew 500 MG CHEW DAILY Nutritional Supplement #30 Ref 0 TAB Budesonide-Formoterol Inh (Symbicort Inh) Unknown Strength Aero Unknown Dose INH Q12HR Asthma Management #1 Ref 0 INHALER Cholecalciferol (Vitamin D3) 1,000 Unit Chew 1000 UNITS CHEW DAILY Nutritional Supplement #1 Ref 0 BOTTLE Ferrous Sulfate (Iron) 325 Mg Tab 325 MG PO DAILY Take Nutritional Supplement Ref 0 TAB Lactulose (Encephalopathy) Liq (Lactulose Liq) 19 Gm/15 Ml Soln Meloxicam (Meloxicam) 7.5 Mg Tab 7.5 MG PO DAILY Arthritis Pain Ref 0 TAB Multiple Vitamins W/ Minerals (Multivitamin Women) 1 Tab Tab 1 TAB PO DAILY Nutritional Supplement Ref 0 TAB Omeprazole (Omeprazole) 20 Mg Tab 20 MG PO DAILY #30 Ref 0 TAB Ondansetron (Zofran) 4 Mg Tab 4 MG PO Q8HR PRN NAUSEA OR VOMITING Ref 0 TAB Ranitidine (Zantac) 150 Mg Tab 150 MG PO HS Reduce Stomach Acid #30 Ref 0 TAB Trazodone (Trazodone) 50 Mg Tab 50 MG PO HS Control Depression #30 Ref 0 TAB Discontinued Medications: Hydrocodone-Acetaminophen (Jenners) 5-325 mg Tab 1 TAB PO Q6H PRN PAIN Ref 0 TAB Lorazepam (Ativan) 0.5 Mg Tab 0.5 MG PO HS PRN ANXIETY AND/OR AGITATION Ref 0 TAB Metoprolol Tartrate (Metoprolol Tartrate) 50 Mg Tab 50 MG PO BID #60 Ref 0 TAB Sriram Ji MD R1 Dec 04, 2016 03:23
== END 2016-10-09 16:58 | DRG 469 ==
LOC: NEDAMB 14:07 → NEDA 17:36 → NEDH 23:13 → N06A 10-06 16:14
PROVIDERS: ADMIT Family Medicine; ATTEND Family Medicine
PROC: 30233N1 Transfusion of Nonautologous Red Blood Cells into Peripheral Vein, Percutaneous Approach (ICD-10-PCS; 2016-10-06)
PROC: 0SRR0J9 Replacement of Right Hip Joint, Femoral Surface with Synthetic Substitute, Cemented, Open Approach (ICD-10-PCS; principal; 2016-10-06 09:47)
PROC: 0QP604Z Removal of Internal Fixation Device from Right Upper Femur, Open Approach (ICD-10-PCS; 2016-10-06 09:47)
DX: S72.141A Displaced intertrochanteric fracture of right femur, initial encounter for closed fracture (principal); J18.9 Pneumonia, unspecified organism; I95.9 Hypotension, unspecified; F03.90 Unspecified dementia, unspecified severity, without behavioral disturbance, psychotic disturbance, mood disturbance, and anxiety; D64.9 Anemia, unspecified; E55.9 Vitamin D deficiency, unspecified; F41.9 Anxiety disorder, unspecified; F32.9 Major depressive disorder, single episode, unspecified; M19.90 Unspecified osteoarthritis, unspecified site; I10 Essential (primary) hypertension; K21.9 Gastro-esophageal reflux disease without esophagitis; J45.909 Unspecified asthma, uncomplicated; R94.31 Abnormal electrocardiogram [ECG] [EKG]; K59.00 Constipation, unspecified; E87.6 Hypokalemia; R29.6 Repeated falls; W19.XXXA Unspecified fall, initial encounter
CPT/HCPCS: 36430; 71010; 73501; 73502; 73610; 80048; 81001; 82306; 84155; 85014; 85018; 85025; 85610; 85730; 86077; 86850; 86870; 86900; 86901; 86902; 86920; 86922; 93005; 94150; C1776; J0131; J0690; J0696; J1170; J1580; J1650; J2250; J2270; J2405; J2710; J3010; J3370; J7030; J7040; J7050; L1830; P9016